=== PATIENT | male | born 1955 | race Caucasian/White ===

== ENCOUNTER 2024-10-22 18:59 | Emergency (ER) | payer BC, MEDICARE ==
[~2024-10-22] VITALS: Ht 188 cm; Wt 106.4 kg
[~2024-10-22 18:59] MED LIST: CYCL-1 PO
[2024-10-22 19:35] LABS: BASOPHILS % (AUTO) 0.4 % (0-1); EOSINOPHILS # (AUTO) 0.2 X10'3 (0-0.9); EOSINOPHILS % (AUTO) 2.2 % (0-6); HEMATOCRIT 39.8 % (42.0-52.0); HEMOGLOBIN 13.6 g/dl (14.0-17.9); LYMPHOCYTES % (AUTO) 22.7 % (21-51); MEAN CORPUSCULAR HEMOGLOBIN 28.5 PG (27.0-31.0); MEAN CORPUSCULAR HGB CONC 34.2 g/dL (33.0-36.5); MEAN CORPUSCULAR VOLUME 83.5 FL (78-98); MEAN PLATELET VOLUME 7.6 FL (7.4-10.4); MONOCYTES # (AUTO) 0.6 X10'3 (0-0.9); MONOCYTES % (AUTO) 6.3 % (2-12); NEUTROPHILS % (AUTO) 68.4 % (42-75); PLATELET COUNT 313 X10'3 (140-440); RED BLOOD COUNT 4.77 X10'6 (4.70-6.10); RED CELL DISTRIBUTION WIDTH 13.2 % (11.5-14.5); WHITE BLOOD COUNT 8.8 X10'3 (4.5-11.0)
--- NOTE | 2024-10-22 19:35 | RADIOLOGY REPORT ---
CHEST RADIOGRAPH Indication: CP Technique: Single frontal view of the chest was obtained COMPARISON: None FINDINGS: Lines and Tubes: None Lungs: Clear Pleura: No effusion. No pneumothorax. Cardiomediastinal contours: Unremarkable IMPRESSION: No acute disease.
[2024-10-22 19:49] LABS: ALANINE AMINOTRANSFERASE 25 U/L (12-78); ALBUMIN 3.8 G/DL (3.4-5.0); ALKALINE PHOSPHATASE 131 IU/L (46-116); ANION GAP 11 (8-16); ASPARTATE AMINO TRANSFERASE 10 U/L (10-37); BILIRUBIN,TOTAL 0.5 MG/DL (0.1-1.0); BLOOD UREA NITROGEN 12 MG/DL (7-18); BUN/CREATININE RATIO 8.8 (10.0-20.0); CALCIUM 8.4 MG/DL (8.5-10.1); CHLORIDE 106 MMOL/L (99-107); CREATININE 1.37 MG/DL (0.60-1.10); GLUCOSE 98 MG/DL (70-104); POTASSIUM 3.3 MMOL/L (3.5-5.1); SODIUM 142 MMOL/L (135-145); TOTAL CARBON DIOXIDE 24.6 MMOL/L (24-32); TOTAL PROTEIN 7.5 G/DL (6.4-8.2); eGFR 52 ML/MIN
[2024-10-22 19:56] LABS: PRO BRAIN NATRIURETIC PEPTIDE 209 PG/ML (0-125)
--- NOTE | 2024-10-22 20:27 | RADIOLOGY REPORT ---
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 This e xam was performed according to our departmental dose optimization program. Up-to-date CT equipment an d radiation dose reduction techniques are utilized as appropriate. CTDIVol: 0.14 + 60.96 mGy DLP: 1149.89 mGy-cm WID: COMPARISON: None FINDINGS: Moderate patchy low-attenuation in the cerebral white matter consistent with nonspecific white matter disease. The ventricles and subarachnoid spaces are normal in size and configuration. There is no midline william ft or mass effect. The heredia white matter interfaces are maintained. The basal cisterns are patent. Th ere is no evidence of acute intracranial hemorrhage or extra-axial fluid collection. The mastoid air cells are well aerated. There is a moderate fluid level in the left maxillary sinus. There is moderat e mucosal thickening of the right maxillary sinus. There is mild mucosal thickening of the left front al sinus and anterior left ethmoid air cells. IMPRESSION: 1. No acute intracranial abnormality. 2. Moderate chronic microvascular ischemic change. 3. Left ostiomeatal unit complex pattern sinusitis. 4. Additional moderate mucosal thickening of the right maxillary sinus, likely inflammatory.
[2024-10-22] MEDS: metoprolol succinate 25mg (24-HOUR) SR. Tablet PO ONE (22:23)
[2024-10-22 22:49] VITALS: TEMP 97.7
--- NOTE | 2024-10-22 23:23 | Physician Documentation ---
History of Present Illness ~ Chief Complaint: Syncope Stated Complaint: CP Time Seen by MD: 21:43 Primary Medical Doctor: NONE Mode of Arrival: POV HPI Patient presents to the emergency room after having lost consciousness that has home. Patient has a history of atrial fibrillation and is noncompliant with his medications regularly. He denies taking his medications today. He states he can feels when he is in atrial fibrillation. Apparently he was at work today and syncopized with head strike. He denies any chest pain. Medication Reconciliation Allergies: Coded Allergies: No Known Allergies (Unverified , 07/21/15) Scheduled PRN Cyclobenzaprine* (Cyclobenzaprine*), 1 TABLET PO QHS PRN for muscle spasms Past Medical History Past Medical History: No Pertinent History Past Surgical History: noncontributory Smoking Status: Never smoker Alcohol Use: None Lives In: Home Occupation: employed Review of Systems ROS All review of systems negative except as per HPI Physical Exam Vital Signs: Temperature: 97.7, Source: Oral, Heart Rate: 94, Respiratory Rate: 12, BP: 158/77, Pulse Oximetry: 98 Oxygen Flow Rate: 0 Physical Exam General: Patient is awake, alert, oriented x4 in no acute distress Head: Normocephalic and atraumatic. Eyes: Conjunctival normal. EOMI. PERRL. ENT: Mucous membranes moist. Neck: Supple, trachea is midline. Chest: Clear to auscultation bilaterally without rales, rhonchi, or wheezes. There is no accessory muscle use or retractions. Cardiac: Tachycardic irregular without murmurs, gallops, or rubs. Abd: Soft, nondistended, nontender, with normoactive bowel sounds. No guarding, rebound, or rigidity. Extremities: Normal strength. Normal range of motion. No deformities or edema. No calf tenderness to palpation Neuro: Cranial nerves II-XII grossly intact. No focal neuro deficits. Progress Results/Orders Results/Orders Orders - TRE TERRY MD Chest,Single View (10/22/24 19:00) Monitor (10/22/24 19:00) Saline Lock (10/22/24 19:00) Oxygen (10/22/24 19:00) Electrocardiogram (10/22/24 19:00) Ct Head (10/22/24 19:20) Completed Orders - TRE TERRY MD Chest,Single View (10/22/24 19:00) Cbc/Diff (10/22/24 19:00) PBNP (10/22/24 19:00) CMP (10/22/24 19:00) Hs Troponin I W Calculations (10/22/24 19:00) Hs Troponin I W Calculations (10/22/24 21:00) Hs Troponin I W Calculations (10/22/24 22:00) Ct Head (10/22/24 19:20) Metoprolol Succinate Er Tablet (Toprol X (10/22/24 21:45) Normal Saline 1000ml (Sodium Chloride 10 (10/22/24 23:25) Diltiazem Iv (Cardizem Iv 5mg/Ml Inj.) (10/22/24 23:25) Potassium Cl Sr Tablet (K-Dur Tablet) (10/22/24 23:30) Ondansetron Disint. Tablet (Zofran Odt T (10/22/24 23:30) Medications Received in ER Medications (Trade) Dose Ordered Sig/Shania Route PRN Reason Start Time Stop Time Status Last Admin Dose Admin (Toprol XL (24-hour) tablet) 25 mg ONCE ONCE PO 10/22/24 21:45 10/22/24 21:46 DC 10/22/24 22:23 25 MG Sodium Chloride 1,000 ml @ 1,000 mls/hr ONCE ONCE IV 10/22/24 23:25 10/23/24 00:24 DC 10/22/24 23:52 1,000 MLS/HR (Cardizem IV 5mg/ ml inj.) 5 mg ONCE ONCE IV 10/22/24 23:25 10/22/24 23:30 DC 10/22/24 23:54 5 MG (K-DUR tablet) 40 meq ONCE STAT PO 10/22/24 23:30 10/22/24 23:31 DC 10/22/24 23:52 40 MEQ (Zofran ODT tablet) 4 mg ONCE ONCE PO 10/22/24 23:30 10/22/24 23:31 DC 10/22/24 23:52 4 MG Vital Signs 10/22/24 10/22/24 10/22/24 10/22/24 19:06 21:11 21:32 22:47 Temp 98.5 97.7 Pulse 110 102 146 Resp 16 16 16 10 B/P (MAP) 143/84 105/68 (80) 135/77 (96) Pulse Ox 96 96 98 O2 Flow Rate 0 0 0 10/22/24 10/22/24 10/23/24 22:49 23:54 00:07 Temp 97.7 Pulse 94 106 100 Resp 12 16 B/P (MAP) 158/77 (104) 130/85 129/72 (91) Pulse Ox 98 97 O2 Flow Rate 0 0 Laboratory Tests Test 10/22/24 19:13 10/22/24 19:19 10/22/24 20:38 10/22/24 22:27 Glucometer 98 White Blood Count 8.8 Red Blood Count 4.77 Hemoglobin 13.6 L Hematocrit 39.8 L Mean Corpuscular Volume 83.5 Mean Corpuscular Hemoglobin 28.5 Mean Corpuscular Hemoglobin Concent 34.2 Red Cell Distribution Width 13.2 Platelet Count 313 Mean Platelet Volume 7.6 Neutrophils (%) (Auto) 68.4 Lymphocytes (%) (Auto) 22.7 Monocytes (%) (Auto) 6.3 Eosinophils (%) (Auto) 2.2 Basophils (%) (Auto) 0.4 Neutrophils # (Auto) 6.0 Lymphocytes # (Auto) 2.0 Monocytes # (Auto) 0.6 Eosinophils # (Auto) 0.2 Basophils # (Auto) 0.0 CBC Comment Sodium Level 142 Potassium Level 3.3 L Chloride Level 106 Carbon Dioxide Level 24.6 Anion Gap 11 Blood Urea Nitrogen 12 Creatinine 1.37 H Estimated GFR/1.73 m2 52 BUN/Creatinine Ratio 8.8 L Glucose Level 98 Calcium Level 8.4 L Total Bilirubin 0.5 Aspartate Amino Transf (AST/SGOT) 10 Alanine Aminotransferase (ALT/SGPT) 25 Alkaline Phosphatase 131 H Troponin I High Sensitivity 9 10 15 Pro-B-Type Natriuretic Peptide 209 H Total Protein 7.5 Albumin 3.8 Globulin 3.7 Albumin/Globulin Ratio 1.0 L Chemistry Comments Troponin I High Sens Percent Delta 11 50 Troponin I Hi Sens Absolute Change 1 5 EKG/XRAY/CT/US/VASC/MRI EKG : Additional Comment EKG interpreted by myself shows time of 1907, rate 109, sinus tachycardia, normal axis, no ST changes Chest X-Ray : Additional Comments Exam: CHEST,SINGLE VIEW CHEST RADIOGRAPH Indication: CP Technique: Single frontal view of the chest was obtained COMPARISON: None FINDINGS: Lines and Tubes: None Lungs: Clear Pleura: No effusion. No pneumothorax. Cardiomediastinal contours: Unremarkable IMPRESSION: No acute disease. Medical Decision Making Findings Patient presents to the emergency room with dizziness and loss of consciousness. Differentials include but are not limited to cardiac arrhythmia, dehydration, vasovagal, pulmonary embolism, ACS therefore emergent labs and imaging indicated. Chest x-ray is reassuring as are labs. Patient endorses noncompliance with his medication. Although we did not capture it on EKG patie nt was in AFib RVR with heart rate between 140 and 150. He went in and out of this a couple of times during his stay in the emergency room. Patient received IV fluids in his dose of metoprolol with improvement of symptoms. He has passed the road test. No calf tenderness to palpation and he had not feel he was suffering from pulmonary embolism. I believe the root of his symptoms was AFib RVR leading to decreased blood pressure in his symptoms. The absolute need to be compliant with his medication discussed. ER precautions discussed. 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 Your symptoms are likely being caused from your heart rate being too high from not taking your medications. Drink plenty of water. Not only are you at increased risk of passing out by not taking your medications but also increased risk of stroke. Follow up with your clay machine operator for any questions. Referrals: NO PRIMARY CARE PROVIDER (PCP) Signature Scribe Signature: No scribe Attestation: The note accurately reflects work and decisions made by me.Tre Terry MD 10/23/24 01:11 TRE TERRY MD October 22, 2024 23:23
[2024-10-22] MEDS: ondansetron 4mg rapidly disintigrating tab PO ONE (23:52)
[2024-10-22] MEDS: potassium Cl 20 mEq SR tablet PO STA (23:52)
[2024-10-22] MEDS: normal saline 1000ml 1,000 ML IV ONE (23:52)
[2024-10-22] MEDS: diltiazem 5mg/ml 5ml inj. IV ONE (23:54)
[2024-10-23 00:07] VITALS: BP 129/72; PULSE 100; RESP 16; O2SAT 97
--- NOTE | 2024-10-23 06:06 | ELECTROCARDIOGRAPH REPORT ---
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 Franky Lara Measurements Intervals [place] Rate: 101 P: 0 [place]: 0 QRS: 12 QRSD: 165 T: 19 QT: 383 QTc: 497 Interpretive Statements Atrial fibrillation Right bundle branch block Artifact in lead(s) I,II,aVR,aVL,aVF Electronically Signed On 10-26-2024 13:44:[address] Franky Lara Please click the below link to view image of tracing.
[2024-10-23] MEDS ORDERED: METO-395 PO (11:33)
[2024-10-23] MEDS ORDERED: ROSU20TA98 PO (11:33)
== END 2024-10-23 01:22 | disposition home or self-care (01) ==
LOC: ER 19:00
DX: I48.20 Chronic atrial fibrillation, unspecified (principal); Z91.148 Patient's other noncompliance with medication regimen for other reason
CPT/HCPCS: 36415; 70450; 71045; 80053; 82948; 83880; 84484; 85025; 93005; 96361; 96374; 99285; J3490; J7030

== ENCOUNTER 2024-10-23 10:45 | Inpatient (IN) | payer BC, MEDICARE ==
[~2024-10-23] VITALS: Ht 188 cm; Wt 107.0 kg
--- NOTE | 2024-10-23 10:49 | ELECTROCARDIOGRAPH REPORT ---
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 Franky Lara Measurements Intervals [place] Rate: 98 P: 91 [place]: 143 QRS: 114 QRSD: 102 T: 91 QT: 361 QTc: 461 Interpretive Statements Sinus rhythm Right atrial enlargement Consider right ventricular hypertrophy Probable anteroseptal infarct, old Electronically Signed On 10-26-2024 13:43:[address] Franky Lara Please click the below link to view image of tracing.
[2024-10-23] MEDS: metoprolol tartrate 1mg/ml inj IV ONE ×2 (11:13→11:20)
[2024-10-23] MEDS ORDERED: metoclopramide 5 mg/ml inj IV ONE (11:15)
--- NOTE | 2024-10-23 11:15 | Physician Documentation ---
History of Present Illness ~ Chief Complaint: Syncope Stated Complaint: CHEST PAIN Time Seen by MD: 11:00 Primary Medical Doctor: BLADE HPI 69-year-old male history of AFib presenting for syncopal episode Medication Reconciliation Allergies: Coded Allergies: No Known Allergies (Unverified , 07/21/15) Scheduled Metoprolol Succinate (Metoprolol Succinate), 1 TAB PO DAILY, (Reported) Rosuvastatin Calcium (Rosuvastatin Calcium), 1 TAB PO HS, (Reported) Discontinued Medications Cyclobenzaprine* (Cyclobenzaprine*), 1 TABLET PO QHS PRN for muscle spasms Discontinued Reason: patient no longer taking Past Medical History Past Medical History: No Pertinent History Past Surgical History: noncontributory Alcohol Use: None Lives In: Home Occupation: employed Review of Systems Constitutional: Denies: fever Respiratory: Denies: cough, orthopnea, shortness of breath Cardiovascular: Reports: diaphoresis, lightheadedness, syncope; Denies: chest pain Gastrointestinal: Denies: abdominal pain Neurological: Denies: headache Integumentary: Denies: rash Physical Exam Vital Signs: Temperature: 98.3, Source: Oral, Heart Rate: 82, Respiratory Rate: 16, BP: 144/67, Pulse Oximetry: 98 Oxygen Flow Rate: 0 Physical Exam Well-appearing no distress resting comfortably in bed No JVD Cardiopulmonary clear to auscultation bilaterally No wheezing rhonchi or rales No murmur Abdomen is soft nontender nondistended no palpable mass Lower extremity no edema Neuro awake alert oriented Skin warm well-perfused Progress Progress Note Time 11:10 a.m. patient had witnessed syncopal episode heart rate in the 200s, SVT unresponsive for approximately 30 seconds. Spontaneously cardioverted normal sinus rhythm 12:00 p.m. discussed case with on-call comic artist Dr. Kelly he recommends that we consult his primary comic artist Mina Jerez 1:00 p.m. real estate legal secretary has been unable to reach Dr. Jerez. He is in the office today and message left with his nurse who advises she will pass him the message Results/Orders Reviewed/noted all lab results: Yes Results/Orders Orders - LORI CARMONA MD Chest,Single View (10/23/24 10:47) Monitor (10/23/24 10:47) Saline Lock (10/23/24 10:47) Oxygen (10/23/24 10:47) Ct Chest (10/23/24 12:03) Ct T&L Spine (10/23/24 12:03) Page Hospitalist (10/23/24 13:04) Fill Out Med Reconciliation (10/23/24 13:04) Completed Orders - LORI CARMONA MD Chest,Single View (10/23/24 10:47) Cbc/Diff (10/23/24 10:47) PBNP (10/23/24 10:47) Electrocardiogram (10/23/24 10:47) CMP (10/23/24 10:47) Hs Troponin I W Calculations (10/23/24 10:47) Hs Troponin I W Calculations (10/23/24 12:47) Hs Troponin I W Calculations (10/23/24 13:47) Metoprolol Tartrate Inj (Lopressor Iv) (10/23/24 11:09) Metoprolol Tartrate Tablet (Lopressor Ta (10/23/24 11:10) Morphine 4mg/Ml Inj. (Morphine Inj.) (10/23/24 11:20) Metoprolol Tartrate Inj (Lopressor Iv) (10/23/24 11:20) Ringers Solution, Lacted (Lactated Ringe (10/23/24 11:20) MG (10/23/24 10:57) Morphine 4mg/Ml Inj. (Morphine Inj.) (10/23/24 12:05) Ct Chest (10/23/24 12:03) Ua With Microscopic (10/23/24 12:13) Electrocardiogram (10/23/24 10:57) Ct T&L Spine (10/23/24 12:03) Electrocardiogram (10/23/24 11:09) Vital Signs 10/23/24 10/23/24 10/23/24 10/23/24 10:49 11:13 11:24 11:27 Temp 98.3 Pulse 78 82 77 Resp 16 15 B/P (MAP) 151/67 Pulse Ox 98 O2 Flow Rate 0 10/23/24 10/23/24 11:28 13:22 Temp 98.1 Pulse 79 70 Resp 12 18 B/P (MAP) 112/73 (86) 131/ Pulse Ox 97 93 O2 Flow Rate 2.0 Laboratory Tests Test 10/23/24 10:57 10/23/24 12:13 10/23/24 13:12 White Blood Count 10.6 Red Blood Count 4.83 Hemoglobin 13.9 L Hematocrit 40.7 L Mean Corpuscular Volume 84.2 Mean Corpuscular Hemoglobin 28.7 Mean Corpuscular Hemoglobin Concent 34.1 Red Cell Distribution Width 13.6 Platelet Count 365 Mean Platelet Volume 7.7 Neutrophils (%) (Auto) 72.4 Lymphocytes (%) (Auto) 18.9 L Monocytes (%) (Auto) 6.9 Eosinophils (%) (Auto) 1.5 Basophils (%) (Auto) 0.3 Neutrophils # (Auto) 7.7 Lymphocytes # (Auto) 2.0 Monocytes # (Auto) 0.7 Eosinophils # (Auto) 0.2 Basophils # (Auto) 0.0 CBC Comment Sodium Level 143 Potassium Level 4.3 Chloride Level 109 H Carbon Dioxide Level 23.5 L Anion Gap 11 Blood Urea Nitrogen 11 Creatinine 1.35 H Estimated GFR/1.73 m2 53 BUN/Creatinine Ratio 8.1 L Glucose Level 114 H Calcium Level 8.3 L Magnesium Level 2.0 Total Bilirubin 0.5 Aspartate Amino Transf (AST/SGOT) 13 Alanine Aminotransferase (ALT/SGPT) 27 Alkaline Phosphatase 123 H Troponin I High Sensitivity 7 11 Troponin I High Sens Percent Delta 53 57 Troponin I Hi Sens Absolute Change -8 4 Pro-B-Type Natriuretic Peptide 770 H Total Protein 7.2 Albumin 3.6 Globulin 3.6 Albumin/Globulin Ratio 1.0 L Chemistry Comments Urine Specimen Description Cln catch midstream Urine Color Yellow Urine Clarity Clear Urine pH 6.5 Urine Specific Walker 1.010 Urine Protein Trace Urine Glucose (UA) Negative Urine Ketones Negative Urine Occult Blood Negative Urine Nitrite Negative Urine Bilirubin Negative Urine Urobilinogen 0.2 Urine Leukocyte Esterase Negative Urine RBC 0-2 Urine WBC 0-4 Urine Squamous Epithelial Cells Few Urine Bacteria None seen Urine Mucus None seen Volume Urine Centrifuged 10 ml Urine Comment Urine Opiates Screen Positive Urine Methadone Screen Negative Urine Fentanyl Screen Negative Urine Barbiturates Screen Negative Urine Phencyclidine Screen Negative Urine Amphetamines Screen Negative Urine Benzodiazepines Screen Negative Urine Cocaine Screen Negative Urine Cannabinoids Screen Negative Drug Screen Comment EKG/XRAY/CT/US/VASC/MRI EKG : Additional Comment I independently interpreted EKG time 10:57 a.m. indication syncope SVT rate to 10 normal axis normal intervals no ST-elevation Medical Decision Making Additional Information Ventricular fibrillation, SVT, AFib Departure Disposition: ADMITTED INPATIENT Admitted to Inpatient Unit: to hospitalist Impression: Primary Impression: SVT (supraventricular tachycardia) Additional Impression: Syncope Qualified Codes: R55 - Syncope and collapse Additional Impression Text Patient presented with multiple episodes of syncope 1 witnessed by myself during which he was in a narrow complex tachycardia. Attempted reaching his comic artist with no success. He was admitted to the hospitalist service for further management of his syncope Referrals: NO PRIMARY CARE PROVIDER (PCP) Critical Care Note Total Time (mins): 30 Critical Care Note The very real possibility of a deterioration of this patient's condition required the highest level of my preparedness for sudden, emergent intervention. I provided critical care services, which included medication orders, frequent reevaluations of the patient's condition and response to treatment, ordering and reviewing test results, and discussing the case with various consultants. Excludes time spent performing separately billable procedures. The critical care time associated with the care of the patient was 30 minutes in the management of SVT requiring immediate intervention Signature Scribe Signature: niyah Attestation: LORI Haines MD October 23, 2024 11:15
[2024-10-23 11:16] LABS: BASOPHILS % (AUTO) 0.3 % (0-1); EOSINOPHILS # (AUTO) 0.2 X10'3 (0-0.9); EOSINOPHILS % (AUTO) 1.5 % (0-6); HEMATOCRIT 40.7 % (42.0-52.0); HEMOGLOBIN 13.9 g/dl (14.0-17.9); LYMPHOCYTES % (AUTO) 18.9 % (21-51); MEAN CORPUSCULAR HEMOGLOBIN 28.7 PG (27.0-31.0); MEAN CORPUSCULAR HGB CONC 34.1 g/dL (33.0-36.5); MEAN CORPUSCULAR VOLUME 84.2 FL (78-98); MEAN PLATELET VOLUME 7.7 FL (7.4-10.4); MONOCYTES # (AUTO) 0.7 X10'3 (0-0.9); MONOCYTES % (AUTO) 6.9 % (2-12); NEUTROPHILS # (AUTO) 7.7 X10'3 (1.8-7.7); NEUTROPHILS % (AUTO) 72.4 % (42-75); PLATELET COUNT 365 X10'3 (140-440); RED BLOOD COUNT 4.83 X10'6 (4.70-6.10); RED CELL DISTRIBUTION WIDTH 13.6 % (11.5-14.5); WHITE BLOOD COUNT 10.6 X10'3 (4.5-11.0)
[2024-10-23] MEDS: metoprolol tartrate 50mg tablet PO ONE (11:24)
[2024-10-23] MEDS: ringers solution, lacted 1,000 ML IV ONE (11:26)
[2024-10-23] MEDS: morphine 4 MG/ML inj SYRINge IV ONE ×2 (11:27→13:59)
[2024-10-23] MEDS ORDERED: METO-395 PO (11:33)
[2024-10-23] MEDS ORDERED: ROSU20TA98 PO (11:33)
[2024-10-23 11:36] LABS: ALANINE AMINOTRANSFERASE 27 U/L (12-78); ALBUMIN 3.6 G/DL (3.4-5.0); ALKALINE PHOSPHATASE 123 IU/L (46-116); ANION GAP 11 (8-16); ASPARTATE AMINO TRANSFERASE 13 U/L (10-37); BILIRUBIN,TOTAL 0.5 MG/DL (0.1-1.0); BLOOD UREA NITROGEN 11 MG/DL (7-18); BUN/CREATININE RATIO 8.1 (10.0-20.0); CALCIUM 8.3 MG/DL (8.5-10.1); CHLORIDE 109 MMOL/L (99-107); CREATININE 1.35 MG/DL (0.60-1.10); GLUCOSE 114 MG/DL (70-104); POTASSIUM 4.3 MMOL/L (3.5-5.1); PRO BRAIN NATRIURETIC PEPTIDE 770 PG/ML (0-125); SODIUM 143 MMOL/L (135-145); TOTAL CARBON DIOXIDE 23.5 MMOL/L (24-32); TOTAL PROTEIN 7.2 G/DL (6.4-8.2); eCRCL 62 ML/MIN; eGFR 53 ML/MIN
--- NOTE | 2024-10-23 11:41 | RADIOLOGY REPORT ---
CHEST RADIOGRAPH Indication: CP Technique: Single frontal view of the chest was obtained COMPARISON: DI CHEST,SINGLE VIEW on DOS: 10/22/24 FINDINGS: Lines and Tubes: None Lungs: Clear Pleura: No effusion. No pneumothorax. Cardiomediastinal contours: Cardiomegaly Bones: Unremarkable IMPRESSION: No acute disease.
[2024-10-23 12:44] LABS: BILIRUBIN,URINE NEGATIVE (Neg); CLARITY,URINE CLEAR (Clear); COLOR,URINE YELLOW (Yellow); GLUCOSE, URINE NEGATIVE (Neg); KETONES,URINE NEGATIVE (Neg); LEUKOCYTE ESTERASE ,URINE NEGATIVE (Neg); OCCULT BLOOD,URINE NEGATIVE (Neg); PH,URINE 6.5 (4.8-8.0); PROTEIN,URINE TRACE mg/dl (Neg); UROBILINOGEN,URINE 0.2 E.U/dL (0.2-1.0)
[2024-10-23 12:50] LABS: NITRITES, URINE NEGATIVE (Neg)
[2024-10-23 12:51] LABS: UA COLLECTION TYPE CLN CATCH MIDSTREAM
[2024-10-23 12:59] LABS: BACTERIA,URINE NONE SEEN /HPF (Neg); RBC,URINE 0-2 /HPF (0-2); SQUAMOUS EPITHELIAL CELL,UR FEW /LPF (FEW); WBC,URINE 0-4 /HPF (0-4)
[2024-10-23 13:00] LABS: MUCUS STRANDS NONE SEEN /LPF (Neg)
--- NOTE | 2024-10-23 13:00 | ELECTROCARDIOGRAPH REPORT ---
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 Franky Lara Measurements Intervals [place] Rate: 208 P: 51 OR: 110 QRS: 50 QRSD: 93 T: 71 QT: 266 QTc: 496 Interpretive Statements Supraventricular tachycardia RSR' in V1 or V2, right VCD or RVH Electronically Signed On 10-26-2024 13:43:[address] Franky Lara Please click the below link to view image of tracing.
--- NOTE | 2024-10-23 13:00 | ELECTROCARDIOGRAPH REPORT ---
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 Franky Lara Measurements Intervals [place] Rate: 95 P: 63 [place]: 149 QRS: 32 QRSD: 100 T: 34 QT: 379 QTc: 477 Interpretive Statements Sinus rhythm RSR' in V1 or V2, right VCD or RVH Borderline prolonged QT interval Electronically Signed On 10-26-2024 13:43:[address] Franky Lara Please click the below link to view image of tracing.
[2024-10-23] MEDS ORDERED: ondansetron/PF 4mg/2ml inj IV PRN (13:30)
[2024-10-23] MEDS ORDERED: potassium Cl 40MEQ/1/2NS 520ml 520 ML IV PRN (13:30)
[2024-10-23] MEDS ORDERED: magnesium sulf-water 2g/50mL 50 ML IV PRN (13:30)
[2024-10-23] MEDS ORDERED: magnesium sulf-water 4G/100mL 100 ML IV PRN (13:30)
[2024-10-23] MEDS ORDERED: magnesium Cl slow-release 64mg tablet PO PRN (13:30)
[2024-10-23] MEDS ORDERED: potassium Cl 20 mEq SR tablet PO PRN ×2 (13:30)
--- NOTE | 2024-10-23 13:39 | RADIOLOGY REPORT ---
CT CT T L SPINE Indication: back trauma EXAM DATE: 10/23/2024 12:58 PM COMPARISON: None TECHNIQUE: CT of the thoracic /lumbar spine and chest without intravenous contrast. RADIATION DOSE: CTDIvol: 34.4 mGy, DLP: 2184 mGy*cm FINDINGS: Trachea patent. No pneumothorax. Bilateral atelectasis. No pulmonary airspace consolidation. Heart size is at the upper limits of normal. Coronary artery calcification disease. No supraclavicular, axillary lymphadenopathy. There is an indeterminate left adrenal nodule measuring 3.8 cm. Thoracic/lumbar spine: The thoracic and lumbar vertebral body heights are maintained. There is mild-t o-moderate multilevel disc space narrowing with endplate sclerosis, anterior and posterior osteophyto sis. Moderate facet hypertrophic changes. There are acute fractures of the left L1, L2, L3, L4 transv erse processes. Aortic atherosclerotic disease. IMPRESSION: 1. Acute fractures of the left L1, L2, L3, L4 transverse processes. 2. [id number] thoracolumbar degenerative disc disease. 3. No pulmonary airspace consolidation. 4. No pulmonary airspace consolidation. 5. Atherosclerotic / coronary artery calcification disease. 6. Pulmonary emphysematous changes. 7. Indeterminate left adrenal nodule measuring 3.8 cm. This can be further characterized on an MRI o f the abdomen, adrenal mass protocol. 8. Other findings as described.
[2024-10-23] MEDS: normal saline 1000ml 1,000 ML IV SCH (13:59)
[2024-10-23 15:15] LABS: URINE AMPHETAMINE SCREEN NEGATIVE (Neg); URINE BARBITUATE SCREEN NEGATIVE (Neg); URINE BENZODIAZEPINES SCREEN NEGATIVE (Neg); URINE CANNABINOID SCREEN NEGATIVE (Neg); URINE COCAINE SCREEN NEGATIVE (Neg); URINE METHADONE SCREEN NEGATIVE (Neg); URINE OPIATE SCREEN POSITIVE (Neg); URINE PHENCYCLIDINE SCREEN NEGATIVE (Neg)
[2024-10-23 15:32] VITALS: BP 129/67; PULSE 86; RESP 15; TEMP 96.7; O2SAT 97
--- NOTE | 2024-10-23 15:56 | HISTORY AND PHYSICAL-Residence ---
History & Physical Providers to CC Resident Creating Document: BERTO PERSON RES ~ History of Present Illness Primary Medical Doctor: NONE Reason for Admit\Complaint: Syncope and Acute lumbar Fractures from GLF History of Present Illness A 69 years old male with a past medical history of AFib with CVR not on any anticoagulation and hx of previous syncopes presented with the frequent syncope attacks resulted into Acute lumbar fractures L1-4 from GLF. He stated that he has passed out total three times in ER this time with some prodromal symptoms of hot flashes, preformed idea of being about to pass out, light headness, and dizziness without having any chest pain pressure or discomfort when he stood up from sitting to standing in ER. He denies palpitations, FNDs, loss of bowel and bladder dysfunction, visual changes, and seizure like activity. He endorsed that he has a confusion, disorientation when he woke up from the syncope. 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 He was found by his Girlfriend at home on the floor with some bruises at the ear nose and nasal bridges. He was released from ER yesterday and got another syncope with prodromal neuro symptoms at his work bathroom after he had urinated and passed out on his back. He has previous syncopes for another total 3 times with no prodromal symptoms for which he visited Dr Jerez office last 5 months ago, where he did not find a specific reason of syncope including bilateral carotid stenosis etc except for the Afib for which he had an electro cardioversion. He denies travel history, sick contact, hx of seizures, and other illicit usage of drugs. Allergies: Coded Allergies: No Known Allergies (Unverified , 07/21/15) Home Medications Home Medications Active Reported Rosuvastatin Calcium 20 Mg Tablet 1 Tab PO HS Metoprolol Succinate 25 Mg Tab.sr.24h 1 Tab PO DAILY Past Medical History Past Medical History AFib with CVR, no anticoagulation Previous history of similar syncope attacks with or without prodromal neurological symptoms. Past Surgical History Surgical History Comment No significant Past Social History Social History Comment He lives alone but his girlfriend is helping and out He quit smoking cigarettes 10 years ago, used to smoke a pack and a half daily for 35 years He quit drinking alcohol 6 years ago and was not a heavy drinker Alcohol Use: None Lives In: Home Occupation: employed ROS ROS ROS were reviewed, WNL except for the above-mentioned in HPI Exam Vitals: Vital Signs Date Time Temp Pulse Resp B/P (MAP) Pulse Ox O2 Delivery O2 Flow Rate FiO2 10/23/24 14:45 67 18 125/71 (89) 93 10/23/24 11:28 98.1 2.0 General: General: In acute pain from the back, Well alert, well oriented, not confused, not agitated, not in acute distress, well cooperated during the physical. HEENT: HEENT: Conjunctive are pink, sclerae clear, no icterus, pupil is equal in both sides, reactive to light, no ear discharge, no pharyngeal erythema or an edema, mouth and lips are slightly dry. Neck: Neck: Supple, no JVD, no lymphadenopathy and thyromegaly. Chest: Lungs: Equal air entry on both lungs, no additional sounds Cardiovascular: Heart: S1-S2 irregularly irregular rhythm and, regular rate, no gallops, no rubs, no murmurs Abdomen: Abdomen: No visible peristalsis, Bowel sounds present on auscultation, soft, nontender, no guarding, no rigidity, no SPA fullness Extremities: Extremities: No obvious deformities, no pitting edema bilaterally, capillary refill intact, able to wiggle toes both sides, peripheral pulsations are intact on both sides Central Nervous System: GRADUATE NURSE: No focal neurological deficits, no motor and sensory weakness in all 4 extremities, could move all 4 extremities Musculoskeletal: Musculoskeletal: No joint swelling, deformities, inflammations, and no scoliosis and back tenderness Skin: Skin: No active skin lesions and rashes Diagnostic Data Last Recorded Lab Results: 10/23/24 1057 10/23/24 1057 Advance Care Planning Advanced Care plannin - 30 Minutes Additional Plan A 69 years old male with a past medical history of AFib with CVR not on any anticoagulation and hx of previous syncopes presented with the frequent syncope attacks resulted into Acute lumbar fractures L1-4 from GLF. # Syncope # GLF complicated w/ acute Lumbar fracture L1-4 w/o FNDs -electrolytes are within normal limits -RBS 114 -Tox urine show negative except for the opiate which could be from the previous ER visit prescription -Trop showed 7-11-9 -thoracic/lumbar spine CT scan showed IMPRESSION: 1. Acute fractures of the left L1, L2, L3, L4 transverse processes. 2. [id number] thoracolumbar degenerative disc disease. 3. No pulmonary airspace consolidation. 4. No pulmonary airspace consolidation. 5. Atherosclerotic / coronary artery calcification disease. 6. Pulmonary emphysematous changes. 7. Indeterminate left adrenal nodule measuring 3.8 cm. This can be further characterized on an MRI of the abdomen, adrenal mass protocol. 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 -heart healthy diet # ELevated Creatinine -no baseline to compare for cr and eGFR, current eGFR is 53 -will monitor daily including rate of eGFR declining with age -optimal hydration # Normochromic Normocytic anemia -hemoglobin 13.9, normal MCV and MCH -most probably from the hemodilution versus early part of CORY -daily CBC monitoring # Hx of substance use (EtoH, Tobacco) -monitoring any withdrawal symptoms, we will initiate protocols if it is necessary CODE STATUS: Full code DVT prophylaxis: Sc heparin 5000 units b.i.d. Analgesia/sedation: Dilaudid Lines/tubes: Peripheral IV GI prophylaxis: None Nutrition: Heart healthy Prognosis: Guarded Disposition: Continue medical management, telemetry, heart rate monitoring, follow up with the pending syncope workups, PT eval and DC plan. Resident MD attestation: Patient was seen, examined and discussed with attending MD, Dr. Rob PERSON MD Internal Medicine Resident, PGY2 [facility] Date of Service: October 23, 2024 Billing Provider: MASOUD WOODY MD Common Visit Codes: 89939-[id number] INP/OBS CARE (HIGH) Secondary Visit Codes: [id number] CARE PLAN 30 MINUTES BERTO PERSON RES October 23, 2024 15:56 MASOUD WOODY MD October 23, 2024 18:58
--- NOTE | 2024-10-23 16:38 | VASCULAR REPORT ---
Carotid Duplex Date: 10/23/2024 02:21 PM Clinical History: Evaluate for Stenosis Comparison: None Technique: Duplex Doppler evaluation of the extracranial carotid and vertebral arteries including col or Doppler and spectral/pulsed waveform analysis was performed. Findings: RIGHT SIDE: The peak systolic velocities are 84.1 cm/s in the distal CCA and 100.2 cm/s in the mid ICA.The ICA/CC A ratio is less than 2. The external carotid artery is patent with peak systolic velocity of 198.1 cm/s proximally. There is appropriate antegrade flow in the right vertebral artery. LEFT SIDE: The peak systolic velocities are 127.6 cm/s in the proximal CCA and 84.4 cm/s in the proximal ICA.. T he ICA/CCA ratio is less than 1. The external carotid artery is patent with peak systolic velocity of 113 cm/s proximally. There is appropriate antegrade flow in the left vertebral artery. IMPRESSION: No hemodynamically significant stenosis noted in the right carotid system. No hemodynamically significant stenosis noted in the left carotid system. Elevated velocity within the right proximal ICA up to 198.1 cm/sec. Reference: Radiology 2003; 229:[id number]
[2024-10-23] MEDS ORDERED: HYDROmorphone 2mg tablet PO PRN (16:50)
[2024-10-23] MEDS: HYDROmorphone 1 mg/ml syringe IV PRN (16:57)
[2024-10-23] MEDS: acetaminophen 325mg tablet PO SCH (16:57)
[2024-10-23 18:00] VITALS: BP 106/60; PULSE 72; RESP 18; TEMP 97.3; O2SAT 91
--- NOTE | 2024-10-23 18:33 | CARDIOLOGY REPORT ---
APPROVED REPORT EXAM: Comprehensive 2D, Doppler, and color-flow Echocardiogram. Patient Location: 302 Blood Pressure: 125/71 mmHg Heart Rate: 74 bpm Rhythm: NSR Indications Chest Pain Pro BNP [address] [employer] Machine Operator is Gabriel Jerez MD Previous echo 03/28/24 CVC 40-45% EF 2D Dimensions LA Diam4.1 cm IVSd 1.1 (0.7-1.1cm) LVDd 5.1 cm PWd 1.1 (0.7-1.1cm) IVSs 1.4 (0.8-1.2cm) LVDs 3.6 (2.5-4.0cm) Aortic Root(2D) 3.5 cm PWs 1.6 (0.8-1.2cm) LVOT Diameter 2.36 (1.8-2.4cm) LVEF(%) 56.0 (>50%) Ao Asc Diam.3.31 cmIVC 22.24 mm FS (%) 29.0 % SV 69.0 ml CO 4.9 L/min M-Mode Dimensions MV EPSS 0.9 (<0.5cm) Aortic Valve AoV Peak Toby. 144.7 cm/s AoV VTI 32.1 cm AO Peak GR. 8.4 mmHg AO Mean GR. 5 mmHg LVOT VTI 22.45 cm LVOT Peak Toby. 109.3 cm/s DMITRY(VTI)/BSA 3.07 cm2/m2 DMITRY (VTI) 3.07 cm2 Mitral Valve MV E Velocity 82.0 cm/s MV Peak Gr. 4 mmHg MV DECEL TIME 188 ms MV A Velocity 78.2 cm/s MV PHT 72 ms E/A Ratio 1.0 MVA (PHT) 3.06 cm2 MV VMax98.2 cm/s TDI Medial E' P. V 12.65 cm/s E/Medial E' 6.5 Tricuspid Valve RAP ESTIMATE 10 mmHg Pulmonary Vein S1 Velocity 52.9 cm/s D2 Velocity 35.5 cm/s PVa Zxkrdmjn45.5 cm/s PVa [id number] msec LEFT VENTRICLE Normal LV size and wall thickness. Overall systolic function is low normal. LVEF is 50-55%. RIGHT VENTRICLE RV appears mildly dilated with normal contractility. ATRIA Left atrium is mildly dilated. AORTIC VALVE Trileaflet AV appears sclerotic without stenosis. No insufficiency. MITRAL VALVE MV is thickened with mild annular calcification and no stenosis. Trace mitral regurgitation. TRICUSPID VALVE The tricuspid valve is normal in structure. Trace tricuspid regurgitation. PULMONIC VALVE The pulmonary valve is normal in structure. Trace pulmonic regurgitation. GREAT VESSELS The aortic root is normal in size. The ascending aorta is normal in size. IVC is dilated and collapse s greater than 50% with inspiration. PERICARDIUM There is no pericardial effusion epicardial pad present. Other Information Study Quality: Adequate Conclusion Normal LV size and wall thickness. Overall systolic function is low normal. LVEF is 50-55%. RV appears mildly dilated with normal contractility. Left atrium is mildly dilated. Trileaflet AV appears sclerotic without stenosis. No insufficiency. MV is thickened with mild annular calcification and no stenosis. Trace mitral regurgitation. The tricuspid valve is normal in structure. Trace tricuspid regurgitation. The pulmonary valve is normal in structure. Trace pulmonic regurgitation. There is no pericardial effusion epicardial pad present.
[2024-10-23 20:00] VITALS: RESP 12; O2SAT 95
[2024-10-23] MEDS ORDERED: morphine 2 MG/ML inj. syringe IV PRN (20:20)
[2024-10-23] MEDS: morphine 4 MG/ML inj SYRINge IV PRN (20:34)
[2024-10-23] MEDS: atorvastatin 20mg tablet PO SCH (20:38)
[2024-10-23] MEDS: Melatonin 3mg tablet PO SCH (20:39)
[2024-10-23] MEDS: heparin, porcine 5000 units/ml vial SQ SCH (20:41)
[2024-10-23 22:00] VITALS: BP 104/54; PULSE 65; RESP 12; TEMP 97.1; O2SAT 95
[2024-10-24] VITALS (8 sets, daily range): BP systolic 104–150; BP diastolic 56–92; PULSE 68–84; RESP 12–21; TEMP 96.6–98.7; O2SAT 91–98
[2024-10-24] MEDS: metoprolol succinate 25mg (24-HOUR) SR. Tablet PO SCH (07:48)
[2024-10-24 08:49] LABS: BASOPHILS % (AUTO) 0.4 % (0-1); EOSINOPHILS # (AUTO) 0.2 X10'3 (0-0.9); EOSINOPHILS % (AUTO) 2.6 % (0-6); HEMATOCRIT 31.7 % (42.0-52.0); HEMOGLOBIN 10.8 g/dl (14.0-17.9); LYMPHOCYTES # (AUTO) 1.3 X10'3 (1.1-4.8); LYMPHOCYTES % (AUTO) 21.8 % (21-51); MEAN CORPUSCULAR HEMOGLOBIN 28.8 PG (27.0-31.0); MEAN CORPUSCULAR VOLUME 84.8 FL (78-98); MEAN PLATELET VOLUME 7.6 FL (7.4-10.4); MONOCYTES # (AUTO) 0.5 X10'3 (0-0.9); MONOCYTES % (AUTO) 8.6 % (2-12); NEUTROPHILS # (AUTO) 3.9 X10'3 (1.8-7.7); NEUTROPHILS % (AUTO) 66.6 % (42-75); PLATELET COUNT 198 X10'3 (140-440); RED BLOOD COUNT 3.73 X10'6 (4.70-6.10); RED CELL DISTRIBUTION WIDTH 12.9 % (11.5-14.5); WHITE BLOOD COUNT 5.9 X10'3 (4.5-11.0)
[2024-10-24 09:03] LABS: ALANINE AMINOTRANSFERASE 22 U/L (12-78); ALBUMIN 2.7 G/DL (3.4-5.0); ALBUMIN/GLOBULIN RATIO 0.9 (1.1-1.5); ALKALINE PHOSPHATASE 94 IU/L (46-116); ANION GAP 5 (8-16); ASPARTATE AMINO TRANSFERASE 9 U/L (10-37); BILIRUBIN,TOTAL 0.5 MG/DL (0.1-1.0); BLOOD UREA NITROGEN 9 MG/DL (7-18); BUN/CREATININE RATIO 8.3 (10.0-20.0); CALCIUM 7.7 MG/DL (8.5-10.1); CHLORIDE 111 MMOL/L (99-107); CREATININE 1.09 MG/DL (0.60-1.10); GLUCOSE 97 MG/DL (70-104); SODIUM 143 MMOL/L (135-145); TOTAL CARBON DIOXIDE 27.2 MMOL/L (24-32); TOTAL PROTEIN 5.6 G/DL (6.4-8.2); eCRCL 76 ML/MIN; eGFR 67 ML/MIN
--- NOTE | 2024-10-24 12:46 | RADIOLOGY REPORT ---
CLINICAL INFORMATION: Acute lumbar transverse process fractures. No neurologic deficits. TECHNIQUE: Multisequence multiplanar MRI images of the lumbar spine were obtained without contrast. COMPARISON: CT dated 10/23/2024. INTERPRETATION: Straightening of the normal cervical lordosis. Minimal retrolisthesis of L5 on S1. Vertebral body heights are maintained. The left L1 through L4 transverse process fractures are sissy r demonstrated recent CT exam, although partially visualized on the coronal images from this exam wit h adjacent Prominent soft tissue edema. No other acute fractures are visualized on this exam. 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 Visualized spinal cord and cauda eq uina are within normal limits. The conus medullaris is appropriate in signal at the L1 level. L1-L2: Disc desiccation. No significant spinal canal or neural foraminal stenosis. L2-L3: Disc desiccation. There is a mild degree of spinal canal stenosis due to congenital spinal ca nal narrowing and epidural lipomatosis. No significant neural foraminal stenosis. L3-L4: Disc desiccation with mild disc bulge mildly indenting the ventral aspect of the thecal sac. There is mild spinal canal stenosis due to the disc bulge and epidural lipomatosis. Mild partial effa cement of the lateral recesses. Facet hypertrophy and slight encroachment of the neural foramina by t he disc bulge contributes to mild bilateral neural foraminal stenoses. L4-L5: Disc desiccation with diffuse disc bulge mildly indenting the ventral aspect of the thecal sa c. Mild spinal canal stenosis due to the disc bulge and epidural lipomatosis. There is partial efface ment of the lateral recesses bilaterally. Facet hypertrophy and encroachment of the neural foramina b y the disc bulge contributes to moderate bilateral neural foraminal stenoses. L5-S1: Disc desiccation with mild disc bulge mildly flattening the ventral aspect of the thecal sac. No significant spinal canal stenosis. Facet hypertrophy and encroachment of the neural foramina by t he disc bulge contributes to [id number] bilateral neural foraminal stenoses. IMPRESSION: 1. Acute, nondisplaced fractures of the left L1 through L4 transverse processes are better demonstrat ed on recent CT exam, partially visualized on the coronal STIR sequence on this exam with adjacent so ft tissue edema. 2. Degenerative disc disease and facet disease in the lumbar spine with associated spinal canal, suba rticular, and neural foraminal stenoses as detailed above. 3. Epidural lipomatosis contributes to the spinal canal stenoses. 4. Additional findings as detailed above.
--- NOTE | 2024-10-24 16:57 | PROGRESS NOTE- Residence ---
Progress Note - Resident Providers to CC Resident Creating Document: BERTO PERSON RES ~ Antibiotic Timeout Antibiotic Ordered?: No Subjective Patient will be having MRI scan today, patient did not report any focal neurological deficits and sensory motor weakness over the lower limbs, did not have any loss of bowel and bladder control function. Objective Vital Signs Date Time Temp Pulse Resp B/P (MAP) Pulse Ox O2 Delivery O2 Flow Rate FiO2 10/24/24 16:42 18 10/24/24 11:00 98.2 80 121/59 (79) 97 Room Air 10/23/24 11:28 2.0 Result Diagram: 10/24/24 0821 10/24/24 0821 Vitals were stable at the moment . On exam, General: In acute pain from the back, Well alert, well oriented, not confused, not agitated, not in acute distress, well cooperated during the physical. HEENT: Conjunctive are pink, sclerae clear, no icterus, pupil is equal in both sides, reactive to light, no ear discharge, no pharyngeal erythema or an edema, mouth and lips are slightly dry. Neck: Supple, no JVD, no lymphadenopathy and thyromegaly. Lungs: Equal air entry on both lungs, no additional sounds Heart: S1-S2 irregularly irregular rhythm and, regular rate, no gallops, no rubs, no murmurs Abdomen: No visible peristalsis, Bowel sounds present on auscultation, soft, nontender, no guarding, no rigidity, no SPA fullness Extremities: No obvious deformities, no pitting edema bilaterally, capillary refill intact, able to wiggle toes both sides, peripheral pulsations are intact on both sides ENCODING CLERK: No focal neurological deficits, no motor and sensory weakness in all 4 extremities, could move all 4 extremities Musculoskeletal: No joint swelling, deformities, inflammations, and no scoliosis and back tenderness Skin: No active skin lesions and rashes Assessment Assessment A 69 years old male with a past medical history of AFib with CVR not on any anticoagulation and hx of previous syncopes presented with the frequent syncope attacks resulted into Acute lumbar fractures L1-4 from GLF. Plan Plan # Syncope # GLF complicated w/ acute Lumbar fracture L1-4 w/o FNDs 10/24/2024: He had MRI lumbar spine scan IMPRESSION: 1. Acute, nondisplaced fractures of the left L1 through L4 transverse processes are better demonstrated on recent CT exam, partially visualized on the coronal STIR sequence on this exam with adjacent soft tissue edema. 2. Degenerative disc disease and facet disease in the lumbar spine with associated spinal canal, subarticular, and neural foraminal stenoses as detailed above. 3. Epidural lipomatosis contributes to the spinal canal stenoses. -continue pain medication, would encourage to movement and avoid bed-bound as much as possible once the pain is controlled, PT eval -Pending Orthostatic hypotension test 10/23/2024: -electrolytes are within normal limits -RBS 114 -Tox urine show negative except for the opiate which could be from the previous ER visit prescription -Trop showed -thoracic/lumbar spine CT scan showed IMPRESSION: 1. Acute fractures of the left L1, L2, L3, L4 transverse processes. 2. Bpao-[id number]-jwuebvml thoracolumbar degenerative disc disease. 3. No pulmonary airspace consolidation. 4. No pulmonary airspace consolidation. 5. Atherosclerotic / coronary artery calcification disease. 6. Pulmonary emphysematous changes. 7. Indeterminate left adrenal nodule measuring 3.8 cm. This can be further characterized on an MRI of the abdomen, adrenal mass protocol. 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 -heart healthy diet # ELevated Creatinine 10/24/2024: Creatinine is gradually trending down today 1.09, optimal hydration and continue monitoring 10/23/2024:-no baseline to compare for cr and eGFR, current eGFR is 53 -will monitor daily including rate of eGFR declining with age -optimal hydration # Normochromic Normocytic anemia 10/24/2024: Hemoglobin trending down today, so are WBC and platelet count-most probably from the hemodilution effect, continuous daily monitoring CBC. 10/23/2024:-hemoglobin 13.9, normal MCV and MCH -most probably from the hemodilution versus early part of CORY -daily CBC monitoring # Hx of substance use (EtoH, Tobacco) -monitoring any withdrawal symptoms, we will initiate protocols if it is necessary CODE STATUS: Full code DVT prophylaxis: Sc heparin 5000 units b.i.d. Analgesia/sedation: Dilaudid Lines/tubes: Peripheral IV GI prophylaxis: None Nutrition: Heart healthy Prognosis: Guarded Disposition: Continue medical management, telemetry, heart rate monitoring, pain control, follow up with the pending syncope workups including orthostatic hypotension, PT eval and DC plan. Resident MD attestation: Patient was seen, examined and discussed with attending MD, Dr. Rob PERSON MD Internal Medicine Resident, PGY2 [facility] Date of Service: October 24, 2024 Billing Provider: MASOUD WOODY MD Common Visit Codes: [id number] INP/OBS CARE(HIGH) BERTO PERSON, VANDANA October 24, 2024 16:57 MASOUD WOODY MD October 24, 2024 18:49
[2024-10-24] MEDS: baclofen 10mg tablet PO PRN (19:19)
[2024-10-25 02:00] VITALS: BP 142/78; PULSE 82; RESP 12; TEMP 97; O2SAT 99
[2024-10-25 06:20] LABS: BASOPHILS % (AUTO) 0.2 % (0-1); EOSINOPHILS # (AUTO) 0.2 X10'3 (0-0.9); EOSINOPHILS % (AUTO) 3.7 % (0-6); HEMATOCRIT 37.1 % (42.0-52.0); HEMOGLOBIN 12.6 g/dl (14.0-17.9); LYMPHOCYTES # (AUTO) 1.1 X10'3 (1.1-4.8); LYMPHOCYTES % (AUTO) 18.2 % (21-51); MEAN CORPUSCULAR HEMOGLOBIN 28.5 PG (27.0-31.0); MEAN CORPUSCULAR HGB CONC 33.8 g/dL (33.0-36.5); MEAN CORPUSCULAR VOLUME 84.1 FL (78-98); MONOCYTES # (AUTO) 0.4 X10'3 (0-0.9); NEUTROPHILS # (AUTO) 4.5 X10'3 (1.8-7.7); NEUTROPHILS % (AUTO) 70.9 % (42-75); PLATELET COUNT 220 X10'3 (140-440); RED BLOOD COUNT 4.41 X10'6 (4.70-6.10); WHITE BLOOD COUNT 6.3 X10'3 (4.5-11.0)
[2024-10-25 06:30] LABS: ALANINE AMINOTRANSFERASE 23 U/L (12-78); ALBUMIN 2.9 G/DL (3.4-5.0); ALBUMIN/GLOBULIN RATIO 0.9 (1.1-1.5); ALKALINE PHOSPHATASE 108 IU/L (46-116); ANION GAP 6 (8-16); ASPARTATE AMINO TRANSFERASE 12 U/L (10-37); BILIRUBIN,TOTAL 0.6 MG/DL (0.1-1.0); BLOOD UREA NITROGEN 8 MG/DL (7-18); BUN/CREATININE RATIO 6.6 (10.0-20.0); CALCIUM 8.1 MG/DL (8.5-10.1); CHLORIDE 110 MMOL/L (99-107); CREATININE 1.22 MG/DL (0.60-1.10); GLUCOSE 121 MG/DL (70-104); POTASSIUM 4.1 MMOL/L (3.5-5.1); SODIUM 145 MMOL/L (135-145); TOTAL CARBON DIOXIDE 29.3 MMOL/L (24-32); TOTAL PROTEIN 6.1 G/DL (6.4-8.2); eCRCL 68 ML/MIN; eGFR 59 ML/MIN
[2024-10-25 07:00] VITALS: RESP 14; O2SAT 96
[2024-10-25] MEDS: traMADol 50MG tablet PO PRN (11:37)
[2024-10-25] MEDS: HYDROcodone/acetaminophen 10/325mg tab PO PRN ×2 (14:11→23:45)
--- NOTE | 2024-10-25 17:10 | PROGRESS NOTE- Residence ---
Progress Note - Resident Providers to CC Resident Creating Document: BERTO PERSON, RES ~ Antibiotic Timeout Antibiotic Ordered?: No Subjective The patient is saying that his pain is not controlled really well with IV morphine and Dilaudid 03/07, requested for more potent pain killer at the moment. Every movement is killing his back, patient is wondering if any interventions can do for his back fracture which was explained that orthopedic surgery should not be done for that nondisplaced back fracture, no neurological deficits were reported at the time. Objective Vital Signs Date Time Temp Pulse Resp B/P (MAP) Pulse Ox O2 Delivery O2 Flow Rate FiO2 10/25/24 14:11 18 10/25/24 07:00 96 Room Air 10/25/24 06:30 78 10/25/24 02:00 97.0 142/78 (99) 10/23/24 11:28 2.0 Result Diagram: 10/25/24 0510/25/24518 Vitals were stable at the moment . On exam, General: In acute pain from the back, Well alert, well oriented, not confused, not agitated, not in acute distress, well cooperated during the physical. HEENT: Conjunctive are pink, sclerae clear, no icterus, pupil is equal in both sides, reactive to light, no ear discharge, no pharyngeal erythema or an edema, mouth and lips are slightly dry. Neck: Supple, no JVD, no lymphadenopathy and thyromegaly. Lungs: Equal air entry on both lungs, no additional sounds Heart: S1-S2 irregularly irregular rhythm and, regular rate, no gallops, no rubs, no murmurs Abdomen: No visible peristalsis, Bowel sounds present on auscultation, soft, nontender, no guarding, no rigidity, no SPA fullness Extremities: No obvious deformities, no pitting edema bilaterally, capillary refill intact, able to wiggle toes both sides, peripheral pulsations are intact on both sides PRODUCT EXAMINER: No focal neurological deficits, no motor and sensory weakness in all 4 extremities, could move all 4 extremities Musculoskeletal: No joint swelling, deformities, inflammations, and no scoliosis and back tenderness Skin: No active skin lesions and rashes Assessment Assessment A 69 years old male with a past medical history of AFib with CVR not on any anticoagulation and hx of previous syncopes presented with the frequent syncope attacks resulted into Acute lumbar fractures L1-4 from GLF. Plan Plan # Syncope # GLF complicated w/ acute Lumbar fracture L1-4 w/o FNDs 10/25/2024: Ordered EEG, MRI head were pending -we will consider to consult with tele neurology consultation as per results -CT head was clear, orthostatic hypotension was limited because of his back pain -continuous telemetry monitoring did not show any possible bradycardia/arrhythmia -PT eval -pain control with [place] 10 q.4 hours as needed and tramadol 50 mg q.8 hours as PRN 10/24/2024: He had MRI lumbar spine scan IMPRESSION: 1. Acute, nondisplaced fractures of the left L1 through L4 transverse processes are better demonstrated on recent CT exam, partially visualized on the coronal STIR sequence on this exam with adjacent soft tissue edema. 2. Degenerative disc disease and facet disease in the lumbar spine with associated spinal canal, subarticular, and neural foraminal stenoses as detailed above. 3. Epidural lipomatosis contributes to the spinal canal stenoses. -continue pain medication, would encourage to movement and avoid bed-bound as much as possible once the pain is controlled, PT eval -Pending Orthostatic hypotension test 10/23/2024: -electrolytes are within normal limits -RBS 114 -Tox urine show negative except for the opiate which could be from the previous ER visit prescription -Trop showed -thoracic/lumbar spine CT scan showed IMPRESSION: 1. Acute fractures of the left L1, L2, L3, L4 transverse processes. 2. Arbj-lu-brzypjyc thoracolumbar degenerative disc disease. 3. No pulmonary airspace consolidation. 4. No pulmonary airspace consolidation. 5. Atherosclerotic / coronary artery calcification disease. 6. Pulmonary emphysematous changes. 7. Indeterminate left adrenal nodule measuring 3.8 cm. This can be further characterized on an MRI of the abdomen, adrenal mass protocol. 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 -heart healthy diet # ELevated Creatinine 10/25/2024: Creatinine showing a little bit increase today, continue IV fluid, monitor I's and O's 10/24/2024: Creatinine is gradually trending down today 1.09, optimal hydration and continue monitoring 10/23/2024:-no baseline to compare for cr and eGFR, current eGFR is 53 -will monitor daily including rate of eGFR declining with age -optimal hydration # Normochromic Normocytic anemia 10/24/2024: Hemoglobin trending down today, so are WBC and platelet count-most probably from the hemodilution effect, continuous daily monitoring CBC. 10/23/2024:-hemoglobin 13.9, normal MCV and MCH -most probably from the hemodilution versus early part of CORY -daily CBC monitoring # Hx of substance use (EtoH, Tobacco) -monitoring any withdrawal symptoms, we will initiate protocols if it is necessary CODE STATUS: Full code DVT prophylaxis: Sc heparin 5000 units b.i.d. Analgesia/sedation: Dilaudid Lines/tubes: Peripheral IV GI prophylaxis: None Nutrition: Heart healthy Prognosis: Guarded Disposition: Continue medical management, telemetry, heart rate monitoring, pain control, follow up with the pending syncope workups including orthostatic hypotension, EEG and MRI brain, PT eval and DC plan. Resident MD attestation: Patient was seen, examined and discussed with attending MD, Dr. Sanchez PERSON MD Internal Medicine Resident, PGY2 [facility] Date of Service: October 25, 2024 Billing Provider: NINA MAYORGA MD Common Visit Codes: [id number] INP/OBS CARE(HIGH) BERTO PERSON RES October 25, 2024 17:10 NINA MAYORGA MD October 25, 2024 19:13
[2024-10-25 18:00] VITALS: BP 113/71; PULSE 79; RESP 12; TEMP 97; O2SAT 95
--- NOTE | 2024-10-25 19:33 | [facility] CONSULT REPORT ---
[facility] Procedure Note [facility] Procedure Note Consult [facility] Note # Demographics Type of EEG Read: - Routine EEG - video Patient Location: Inpatient First Name: Lester Last Name: Raiza Date of : 1955 Age: 69 Gender: Male Facility: [facility] Time of Initial Page (Hubbard ): 10/25/2024 14:16 Time of Return Call (Hubbard Time): 10/25/2024 14:16 # EEG Interpretation Start Time of EEG Read (Hubbard Time): 10/25/2024 14:34 Stop Time of EEG Read (Hubbard ): 10/25/2024 14:55 Duration: 0h 21m Technical Details: - The EEG electrodes were placed using the standard International 10-20 system of electrode placement. Video and an accessory EKG lead were used during the course of this study. - This study was recorded using the [employer] EEG software Indication: - syncope # Description Photic Stimulation: NOT Performed Hyperventilation: NOT performed Phases Captured: - awake - drowsy Symmetry: symmetric Posterior Dominant Rhythm: The record is continuous, of normal amplitude and bilaterally symmetrical. There was no clear posterior dominant rhythm. There is a moderate amount of diffuse low amplitude 15-25 Hz beta activity and an moderate amount of 4-7 Hz theta activity. Moderate <4 Hz delta activity is present during wakefulness. Amplitude: normal Reactivity: unclear Variability: unclear Continuity: continuous EKG: artifactual # Abnormalities Epileptiform Abnormalities: - NOT present Focal Slowing: no Seizure: - NOT present No push button events. # Impression Impression: abnormal 1. Diffuse Slowing # Clinical Correlation Clinical Correlation: 1. Diffuse slowing is non-specific and may be seen in the setting of diffuse cerebral dysfunction; such as toxic/metabolic/infectious encephalopathy or heavily sedating medication use. # Demographics First Name: Lester Last Name: Raiza Facility: [facility] SUSANA KEN MD October 25, 2024 19:33
[2024-10-25 20:00] VITALS: BP_SYST 113; BP_SYST 12; BP_DIAS 71; RESP 19; O2SAT 95
--- NOTE | 2024-10-25 21:14 | RADIOLOGY REPORT ---
[facility] EXAM[facility]: MR MRI HEAD INDICATION: Syncope, ruled out other casues COMPARISON: CT CT HEAD on DOS: 10/22/24 TECHNIQUE: Multiplanar, multisequence magnetic resonance imaging of the brain was performed without the use of i ntravenous contrast. FINDINGS: No evidence of acute or remote infarct. No intracranial hemorrhage. No mass effect. There is periventricular/deep white matter T2/FLAIR hyperintensity is nonspecific, but most commonly associated with chronic microvascular disease. The ventricles and sulci are normal in size for age. Clear basal cisterns. Flow voids in the major intracranial vessels are maintained. No abnormality of the orbits. Paranasal sinuses and mastoid air cells are clear. No abnormality of the visualized osseous structures and extracranial soft tissues. IMPRESSION: No acute infarct, intracranial hemorrhage, mass effect, or hydrocephalus.
[2024-10-25 22:00] VITALS: BP 131/68; PULSE 71; RESP 16; TEMP 97; O2SAT 97
[2024-10-26 02:00] VITALS: BP 121/74; PULSE 73; RESP 13; TEMP 97; O2SAT 96
[2024-10-26 06:46] LABS: BASOPHILS % (AUTO) 0.3 % (0-1); EOSINOPHILS # (AUTO) 0.3 X10'3 (0-0.9); EOSINOPHILS % (AUTO) 4.5 % (0-6); LYMPHOCYTES # (AUTO) 1.3 X10'3 (1.1-4.8); LYMPHOCYTES % (AUTO) 20.9 % (21-51); MEAN CORPUSCULAR HEMOGLOBIN 28.7 PG (27.0-31.0); MEAN CORPUSCULAR HGB CONC 34.2 g/dL (33.0-36.5); MEAN CORPUSCULAR VOLUME 84.1 FL (78-98); MEAN PLATELET VOLUME 7.7 FL (7.4-10.4); MONOCYTES # (AUTO) 0.5 X10'3 (0-0.9); MONOCYTES % (AUTO) 8.4 % (2-12); NEUTROPHILS # (AUTO) 4.2 X10'3 (1.8-7.7); NEUTROPHILS % (AUTO) 65.9 % (42-75); PLATELET COUNT 232 X10'3 (140-440); RED BLOOD COUNT 4.16 X10'6 (4.70-6.10); WHITE BLOOD COUNT 6.4 X10'3 (4.5-11.0)
[2024-10-26 07:10] LABS: ALANINE AMINOTRANSFERASE 20 U/L (12-78); ALBUMIN 2.8 G/DL (3.4-5.0); ALBUMIN/GLOBULIN RATIO 0.9 (1.1-1.5); ALKALINE PHOSPHATASE 104 IU/L (46-116); ANION GAP 6 (8-16); ASPARTATE AMINO TRANSFERASE 11 U/L (10-37); BILIRUBIN,TOTAL 0.7 MG/DL (0.1-1.0); BLOOD UREA NITROGEN 10 MG/DL (7-18); CALCIUM 7.8 MG/DL (8.5-10.1); CHLORIDE 109 MMOL/L (99-107); CREATININE 1.25 MG/DL (0.60-1.10); GLUCOSE 94 MG/DL (70-104); SODIUM 143 MMOL/L (135-145); TOTAL CARBON DIOXIDE 27.7 MMOL/L (24-32); TOTAL PROTEIN 5.9 G/DL (6.4-8.2); eCRCL 67 ML/MIN; eGFR 58 ML/MIN
[2024-10-26 08:00] VITALS: BP_SYST 132; BP_SYST 138; BP_DIAS 81; PULSE 74; PULSE 80; RESP 16; O2SAT 96
--- NOTE | 2024-10-26 10:35 | [facility] NEURO CONSULT REPORT ---
[facility] Procedure Note [facility] Procedure Note Consult [facility] Note # Demographics Consult Type: General Neurology Patient Location: Inpatient First Name: MAGY Last Name: BAIRON Date of : 1955 Age: 69 Gender: Male Facility: [facility] Time of Initial Page (Stewart Time): 10/26/2024 10:17 Time of Return Call (Stewart Time): 10/26/2024 10:17 # HPI History: 69yom with a fib (not on AC) who p/w multiple syncopal episodes and resultant L1-L4 lumbar fractures. Prior to passing out, he has feelings of hot flashes, lightheadedness, and dizziness. Sometimes feels disoriented after waking up from the syncopal episode. He says this started 8 months ago. Seemed to improve, and then started occurring again 4 days ago. He says the episodes usually occur after standing. Reportedly, after he stands he usually goes "limp". No reported seizure like activity. It is unclear how long he is unconscious for. Workup in the hospital consistent with EEG with diffuse slowing. MRI brain with no acute findings. # Exam Mental Status: - awake - alert and oriented x 3 Language: - normal speech - no aphasia Cranial Nerves: - normal - extra ocular movements intact Motor: - normal strength Sensory: - normal sensation # Data MRI: - no acute ischemia - per radiologist read # Assessment Impression: Syncopal episodes sound most consistent with cardiogenic/orthostatic hypotension and would be atypical for seizure. Recommend full workup for cardiac causes of syncope. If no other obvious causes, referral to neurology for further workup for seizure and could consider a trial of AEDs at that time # Plan Other: - If patient has any neurological deterioration please call me back immediately - neurology referral as outpatient # Demographics First Name: MAGY Last Name: BAIRON Facility: [facility] Neuro Consult Order placed for: Yes ANURAG PASTRANA MD October 26, 2024 10:35
[2024-10-26 16:00] VITALS: BP_SYST 132; BP_SYST 138; BP_DIAS 81; PULSE 74; PULSE 80
--- NOTE | 2024-10-26 17:32 | PROGRESS NOTE- Residence ---
Progress Note - Resident Providers to CC Resident Creating Document: CONSTANTINO YOUNG RES ~ Antibiotic Timeout Antibiotic Ordered?: No Subjective Patient seen and examined today. No new complaints. Continues to have back pain Objective Vital Signs Date Time Temp Pulse Resp B/P (MAP) Pulse Ox O2 Delivery O2 Flow Rate FiO2 10/26/24 06:30 71 10/26/24 02:00 97.0 13 121/74 (90) 96 Room Air 10/25/24 20:00 2.0 Result Diagram: 10/26/24 0609 10/26/24 0609 General: In acute pain from the back, Well alert, well oriented, not confused, not agitated, not in acute distress, well cooperated during the physical. HEENT: Conjunctive are pink, sclerae clear, no icterus, pupil is equal in both sides, reactive to light, no ear discharge, no pharyngeal erythema or an edema, mouth and lips are slightly dry. Neck: Supple, no JVD, no lymphadenopathy and thyromegaly. Lungs: Equal air entry on both lungs, no additional sounds Heart: S1-S2 irregularly irregular rhythm and, regular rate, no gallops, no rubs, no murmurs Abdomen: No visible peristalsis, Bowel sounds present on auscultation, soft, nontender, no guarding, no rigidity, no SPA fullness Extremities: No obvious deformities, no pitting edema bilaterally, capillary refill intact, able to wiggle toes both sides, peripheral pulsations are intact on both sides CATTLE BROKER: No focal neurological deficits, no motor and sensory weakness in all 4 extremities, could move all 4 extremities Musculoskeletal: No joint swelling, deformities, inflammations, and no scoliosis and back tenderness Skin: No active skin lesions and rashes Assessment Assessment A 69 years old male with a past medical history of AFib with CVR not on any anticoagulation and hx of previous syncopes presented with the frequent syncope attacks resulted into Acute lumbar fractures L1-4 from GLF. Plan Plan # Syncope # GLF complicated w/ acute Lumbar fracture L1-4 w/o FNDs 10/26/2024: Head MRI negative for any acute intracranial changes. Chronic microvascular disease present. EEG showed diffuse slowing and no epileptiform abnormalities. -Tele neurology consult requested and they stated that it is atypical for it to be a seizure. Recommended full workup for cardiac causes of syncope. If no other obvious causes, referral to neurology for further workup for seizure and could consider a trial of AEDs at that time. Per nurse, orthostats negative 10/25/2024: Ordered EEG, MRI head were pending -we will consider to consult with tele neurology consultation as per results -CT head was clear, orthostatic hypotension was limited because of his back pain -continuous telemetry monitoring did not show any possible bradycardia/arrhythmia -PT eval -pain control with [place] 10 q.4 hours as needed and tramadol 50 mg q.8 hours as PRN 10/24/2024: He had MRI lumbar spine scan IMPRESSION: 1. Acute, nondisplaced fractures of the left L1 through L4 transverse processes are better demonstrated on recent CT exam, partially visualized on the coronal STIR sequence on this exam with adjacent soft tissue edema. 2. Degenerative disc disease and facet disease in the lumbar spine with associated spinal canal, subarticular, and neural foraminal stenoses as detailed above. 3. Epidural lipomatosis contributes to the spinal canal stenoses. -continue pain medication, would encourage to movement and avoid bed-bound as much as possible once the pain is controlled, PT eval -Pending Orthostatic hypotension test 10/23/2024: -electrolytes are within normal limits -RBS 114 -Tox urine show negative except for the opiate which could be from the previous ER visit prescription -Trop showed -thoracic/lumbar spine CT scan showed IMPRESSION: 1. Acute fractures of the left L1, L2, L3, L4 transverse processes. 2. [id number]-jh-[id number] thoracolumbar degenerative disc disease. 3. No pulmonary airspace consolidation. 4. No pulmonary airspace consolidation. 5. Atherosclerotic / coronary artery calcification disease. 6. Pulmonary emphysematous changes. 7. Indeterminate left adrenal nodule measuring 3.8 cm. This can be further characterized on an MRI of the abdomen, adrenal mass protocol. - pending bilateral carotid artery USG -pending Orthostatic hypotension test -monitor vitals -pending 2D echocardiogram # Afib w/ CVR, FRANNY VASC SCORE -1 On 10/26/2024: Rate well controlled. On metoprolol succinate 25 mg p.o. 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 -heart healthy diet # ELevated Creatinine 10/26/2024: Creatinine stable. Continue IV fluids 10/25/2024: Creatinine showing a little bit increase today, continue IV fluid, monitor I's and O's 10/24/2024: Creatinine is gradually trending down today 1.09, optimal hydration and continue monitoring 10/23/2024:-no baseline to compare for cr and eGFR, current eGFR is 53 -will monitor daily including rate of eGFR declining with age -optimal hydration # Normochromic Normocytic anemia 10/26/2024: H&H stable 10/24/2024: Hemoglobin trending down today, so are WBC and platelet count-most probably from the hemodilution effect, continuous daily monitoring CBC. 10/23/2024:-hemoglobin 13.9, normal MCV and MCH -most probably from the hemodilution versus early part of CORY -daily CBC monitoring # Hx of substance use (EtoH, Tobacco) -monitoring any withdrawal symptoms, we will initiate protocols if it is necessary CODE STATUS: Full code DVT prophylaxis: Sc heparin 5000 units b.i.d. Analgesia/sedation: Dilaudid Lines/tubes: Peripheral IV GI prophylaxis: None Nutrition: Heart healthy Prognosis: Guarded Disposition: Continue medical management, telemetry, heart rate monitoring, pain control, needs outpatient cardiology and neurology follow up. Pending PT evaluation Constantino Young MD Internal Medicine Resident, PGY 2 Addendum ac back pain 2 to transverse processes fx L1 thr L4; pain under better control, PT Date of Service: October 26, 2024 Billing Provider: NINA MAYORGA MD Common Visit Codes: [id number] INP/OBS CARE(HIGH) CONSTANTINO YOUNG RES October 26, 2024 17:32 NINA MAYORGA MD October 26, 2024 19:12
[2024-10-26 18:00] VITALS: BP 126/70; PULSE 86; RESP 15; TEMP 97.4; O2SAT 92
[2024-10-26 20:00] VITALS: BP_SYST 132; BP_SYST 138; BP_DIAS 81; PULSE 74; PULSE 80; RESP 15; O2SAT 92
[2024-10-26] MEDS: guaiFENesin ER 600mg tablet PO SCH (20:00)
[2024-10-26 22:00] VITALS: BP 134/69; PULSE 80; RESP 20; TEMP 97.5; O2SAT 94
[2024-10-27] VITALS (9 sets, daily range): BP systolic 98–143; BP diastolic 60–78; PULSE 70–93; RESP 15–20; TEMP 97–97.5; O2SAT 91–98
[2024-10-27 06:56] LABS: BASOPHILS % (AUTO) 0.3 % (0-1); EOSINOPHILS # (AUTO) 0.2 X10'3 (0-0.9); HEMATOCRIT 36.2 % (42.0-52.0); HEMOGLOBIN 12.4 g/dl (14.0-17.9); LYMPHOCYTES # (AUTO) 1.1 X10'3 (1.1-4.8); MEAN CORPUSCULAR HEMOGLOBIN 28.7 PG (27.0-31.0); MEAN CORPUSCULAR HGB CONC 34.4 g/dL (33.0-36.5); MEAN CORPUSCULAR VOLUME 83.5 FL (78-98); MEAN PLATELET VOLUME 7.7 FL (7.4-10.4); MONOCYTES # (AUTO) 0.5 X10'3 (0-0.9); MONOCYTES % (AUTO) 6.8 % (2-12); NEUTROPHILS # (AUTO) 5.6 X10'3 (1.8-7.7); NEUTROPHILS % (AUTO) 74.9 % (42-75); PLATELET COUNT 253 X10'3 (140-440); RED BLOOD COUNT 4.34 X10'6 (4.70-6.10); RED CELL DISTRIBUTION WIDTH 12.8 % (11.5-14.5); WHITE BLOOD COUNT 7.5 X10'3 (4.5-11.0)
[2024-10-27 07:19] LABS: ALANINE AMINOTRANSFERASE 26 U/L (12-78); ALBUMIN 2.9 G/DL (3.4-5.0); ALBUMIN/GLOBULIN RATIO 0.9 (1.1-1.5); ALKALINE PHOSPHATASE 132 IU/L (46-116); ANION GAP 8 (8-16); ASPARTATE AMINO TRANSFERASE 15 U/L (10-37); BILIRUBIN,TOTAL 0.8 MG/DL (0.1-1.0); BLOOD UREA NITROGEN 8 MG/DL (7-18); CALCIUM 8.3 MG/DL (8.5-10.1); CHLORIDE 108 MMOL/L (99-107); CREATININE 1.14 MG/DL (0.60-1.10); GLUCOSE 93 MG/DL (70-104); POTASSIUM 4.1 MMOL/L (3.5-5.1); SODIUM 143 MMOL/L (135-145); TOTAL CARBON DIOXIDE 27.5 MMOL/L (24-32); TOTAL PROTEIN 6.3 G/DL (6.4-8.2); eCRCL 73 ML/MIN; eGFR 64 ML/MIN
[2024-10-27] MEDS ORDERED: HYDROcodone/acetaminophen 5mg/325mg tablet PO PRN (12:50)
[2024-10-27] MEDS: predniSONE 20 mg tablet PO ONE (14:02)
--- NOTE | 2024-10-27 18:37 | PROGRESS NOTE- Residence ---
Progress Note - Resident Providers to CC Resident Creating Document: LAKEISHAKIANAANDRÉS RES ~ Antibiotic Timeout Antibiotic Ordered?: No Subjective Patient seen and examined today. No new complaints. Continues to have back pain , 0/10 while lying down and when shifted to right-sided it is 10/10. and spinning sensation. Endorses hallucinations. He is complaining of the swelling over the ankle because of the gout. Objective Vital Signs Date Time Temp Pulse Resp B/P (MAP) Pulse Ox O2 Delivery O2 Flow Rate FiO2 10/27/24 14:33 82 130/78 (95) 10/27/24 08:00 16 91 Room Air 10/27/24 02:00 97.3 10/25/24 20:00 2.0 Result Diagram: 10/27/2462910/27/24629 General: Well alert, well oriented, not confused, not agitated, not in acute distress, well cooperated during the physical. HEENT: Conjunctive are pink, sclerae clear, no icterus, pupil is equal in both sides, reactive to light, no ear discharge, no pharyngeal erythema or an edema, mouth and lips are slightly dry. Neck: Supple, no JVD, no lymphadenopathy and thyromegaly. Lungs: Equal air entry on both lungs, no additional sounds Heart: S1-S2 irregularly irregular rhythm and, regular rate, no gallops, no rubs, no murmurs Abdomen: No visible peristalsis, Bowel sounds present on auscultation, soft, nontender, no guarding, no rigidity, no SPA fullness Extremities: No obvious deformities, no pitting edema bilaterally, capillary refill intact, able to wiggle toes both sides, peripheral pulsations are intact on both sides. 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 Plan Plan # Syncope # GLF complicated w/ acute Lumbar fracture L1-4 w/o FNDs 10/27/2024: We started the patient on Keppra 500 mg p.o. b.i.d. for syncope secondary to seizures. Patient needs the Neurology outpatient referral. Started on Victor for back pain 10/26/2024: Head MRI negative for any acute intracranial changes. Chronic microvascular disease present. EEG showed diffuse slowing and no epileptiform abnormalities. -Tele neurology consult requested and they stated that it is atypical for it to be a seizure. Recommended full workup for cardiac causes of syncope. If no other obvious causes, referral to neurology for further workup for seizure and could consider a trial of AEDs at that time. Per nurse, orthostats negative 10/25/2024: Ordered EEG, MRI head were pending -we will consider to consult with tele neurology consultation as per results -CT head was clear, orthostatic hypotension was limited because of his back pain -continuous telemetry monitoring did not show any possible bradycardia/arrhythmia -PT eval -pain control with Victor 10 q.4 hours as needed and tramadol 50 mg q.8 hours as PRN 10/24/2024: He had MRI lumbar spine scan IMPRESSION: 1. Acute, nondisplaced fractures of the left L1 through L4 transverse processes are better demonstrated on recent CT exam, partially visualized on the coronal STIR sequence on this exam with adjacent soft tissue edema. 2. Degenerative disc disease and facet disease in the lumbar spine with associated spinal canal, subarticular, and neural foraminal stenoses as detailed above. 3. Epidural lipomatosis contributes to the spinal canal stenoses. -continue pain medication, would encourage to movement and avoid bed-bound as much as possible once the pain is controlled, PT eval -Pending Orthostatic hypotension test 10/23/2024: -electrolytes are within normal limits -RBS 114 -Tox urine show negative except for the opiate which could be from the previous ER visit prescription -Trop showed -thoracic/lumbar spine CT scan showed IMPRESSION: 1. Acute fractures of the left L1, L2, L3, L4 transverse processes. 2. Thum-yf-unoqpbmy thoracolumbar degenerative disc disease. 3. No pulmonary airspace consolidation. 4. No pulmonary airspace consolidation. 5. Atherosclerotic / coronary artery calcification disease. 6. Pulmonary emphysematous changes. 7. Indeterminate left adrenal nodule measuring 3.8 cm. This can be further characterized on an MRI of the abdomen, adrenal mass protocol. - pending bilateral carotid artery USG -pending Orthostatic hypotension test -monitor vitals -pending 2D echocardiogram Acute gout on left ankle Started on prednisolone 40 mg once daily dose # Afib w/ CVR, FRANNY VASC SCORE -1 10/27/2024: Continue metoprolol 25 mg p.o. daily, rate is well controlled On 10/26/2024: Rate well controlled. On metoprolol succinate 25 mg p.o. 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 -heart healthy diet CRYSTAL likely secondary to renal tubular stasis 10/27/2024: Creatinine is stabilized. Continue IV normal saline. 10/26/2024: Creatinine stable. Continue IV fluids 10/25/2024: Creatinine showing a little bit increase today, continue IV fluid, monitor I's and O's 10/24/2024: Creatinine is gradually trending down today 1.09, optimal hydration and continue monitoring 10/23/2024:-no baseline to compare for cr and eGFR, current eGFR is 53 -will monitor daily including rate of eGFR declining with age -optimal hydration # Normochromic Normocytic anemia 10/27/2024: H&H is 12.4 and 36.2, stable 10/26/2024: H&H stable 10/24/2024: Hemoglobin trending down today, so are WBC and platelet count-most probably from the hemodilution effect, continuous daily monitoring CBC. 10/23/2024:-hemoglobin 13.9, normal MCV and MCH -most probably from the hemodilution versus early part of CORY -daily CBC monitoring # Hx of substance use (EtoH, Tobacco) -monitoring any withdrawal symptoms, we will initiate protocols if it is necessary CODE STATUS: Full code DVT prophylaxis: Sc heparin 5000 units b.i.d. Analgesia/sedation: Dilaudid Lines/tubes: Peripheral IV GI prophylaxis: None Nutrition: Heart healthy Prognosis: Guarded PT: Home discharge with DC barrier Andrés Fonseca MD Internal Medicine Resident, PGY 1 Addendum hallucinations, likely narcotic induced; unfortunately in the view of poss seizures tramadol contraindicated; try lower dose norco had discussion with pt about poss etiologies of his syncope, due to the dramatic result of his last episode injuring his spine, pt is willing to start AED Date of Service: Oct 27, 2024 Billing Provider: NINA MAYORGA MD Common Visit Codes: 63819-[id number] INP/OBS CARE(HIGH) ANDRÉS FONSECA, RES Oct 27, 2024 18:37 NINA MAYORGA MD Oct 27, 2024 21:09
[2024-10-27] MEDS: levetiracetam 250mg tablet PO SCH (21:30)
[2024-10-28] MEDS ORDERED: calamine LOTION TP PRN (00:20)
[2024-10-28] MEDS ORDERED: acetaminophen 325mg tablet PO PRN (00:25)
[2024-10-28 02:00] VITALS: BP 124/79; PULSE 71; RESP 14; TEMP 97; O2SAT 96
[2024-10-28] MEDS: acetaminophen 325mg tablet PO PRN (06:09)
[2024-10-28 07:10] LABS: BASOPHILS % (AUTO) 0.1 % (0-1); EOSINOPHILS % (AUTO) 0 % (0-6); HEMOGLOBIN 12.5 g/dl (14.0-17.9); LYMPHOCYTES # (AUTO) 1.1 X10'3 (1.1-4.8); MEAN CORPUSCULAR HEMOGLOBIN 28.4 PG (27.0-31.0); MEAN CORPUSCULAR HGB CONC 33.7 g/dL (33.0-36.5); MEAN CORPUSCULAR VOLUME 84.2 FL (78-98); MONOCYTES # (AUTO) 0.6 X10'3 (0-0.9); MONOCYTES % (AUTO) 6.5 % (2-12); NEUTROPHILS # (AUTO) 7.4 X10'3 (1.8-7.7); NEUTROPHILS % (AUTO) 81.4 % (42-75); PLATELET COUNT 271 X10'3 (140-440); WHITE BLOOD COUNT 9.1 X10'3 (4.5-11.0)
[2024-10-28 07:14] LABS: ALANINE AMINOTRANSFERASE 35 U/L (12-78); ALBUMIN/GLOBULIN RATIO 0.8 (1.1-1.5); ALKALINE PHOSPHATASE 134 IU/L (46-116); ANION GAP 11 (8-16); ASPARTATE AMINO TRANSFERASE 22 U/L (10-37); BILIRUBIN,TOTAL 0.7 MG/DL (0.1-1.0); BLOOD UREA NITROGEN 15 MG/DL (7-18); CALCIUM 8.4 MG/DL (8.5-10.1); CHLORIDE 107 MMOL/L (99-107); CREATININE 1.15 MG/DL (0.60-1.10); GLUCOSE 114 MG/DL (70-104); POTASSIUM 4.1 MMOL/L (3.5-5.1); SODIUM 143 MMOL/L (135-145); TOTAL CARBON DIOXIDE 24.7 MMOL/L (24-32); TOTAL PROTEIN 6.6 G/DL (6.4-8.2); eCRCL 72 ML/MIN; eGFR 63 ML/MIN
[2024-10-28 07:27] VITALS: BP 141/78; PULSE 70; RESP 16; TEMP 97.2; O2SAT 95
[2024-10-28 08:00] VITALS: RESP 20; O2SAT 95
[2024-10-28] MEDS ORDERED: BAC10T PO (10:56)
[2024-10-28] MEDS ORDERED: LEVE250T PO (10:56)
[2024-10-28] MEDS ORDERED: FURO-150 PO (10:56)
[2024-10-28] MEDS ORDERED: HYDR-3965 PO (10:56)
[2024-10-28 11:00] VITALS: BP 130/69; PULSE 83; RESP 20; TEMP 97.5; O2SAT 95
--- NOTE | 2024-10-28 19:11 | DISCHARGE SUMMARY-Residence ---
Discharge Summary Providers to CC Resident Creating Document: CAMRYN MORENO RES ~ Discharge Summary Admission Diagnosis: syncopal episode , SVT , fall , CAD Hospital Course DATE OF ADMISSION: 10/23/2024 DATE OF DISCHARGE: 10/28/2024 Hospital course same as mentioned discharge summary. Discharge Diagnosis\Comment: # Syncope # GLF complicated w/ acute Lumbar fracture L1-4 w/o FNDs Acute gout on left ankle # Afib w/ CVR, MILAN VASC SCORE -1 # HLD CRYSTAL likely secondary to renal tubular stasis # Normochromic Normocytic anemia # Hx of substance use (EtoH, Tobacco) Operations\Procedures: None Consultants: Tele neuro Complications: None Condition on DC: Stable New Medications: Furosemide (Lasix) 20 Mg Tablet 20 MG PO DAILY, #30 TAB Hydrocodone Bit/Acetaminophen 5/325 MG ([place] 5/325 MG) 5 Mg/325 Mg Tablet 1 TAB PO Q6H PRN for pain, #14 TAB Baclofen (Baclofen) 10 Mg Tablet 10 MG PO Q8H PRN for muscle spasms, #30 TAB FALL RISK Levetiracetam (Levetiracetam) 250 Mg Tablet 500 MG PO BID, #120 TAB Continued Medications: Metoprolol Succinate (Metoprolol Succinate) 25 Mg Tab.sr.24h 1 TAB PO DAILY Rosuvastatin Calcium (Rosuvastatin Calcium) 20 Mg Tablet 1 TAB PO HS Discharge Summary: As per HPI: A 69 years old male with a past medical history of AFib with CVR not on any anticoagulation and hx of previous syncopes presented with the frequent syncope attacks resulted into Acute lumbar fractures L1-4 from GLF. He stated that he has passed out total three times in ER this time with some prodromal symptoms of hot flashes, preformed idea of being about to pass out, light headness, and dizziness without having any chest pain pressure or discomfort when he stood up from sitting to standing in ER. He denies palpitations, FNDs, loss of bowel and bladder dysfunction, visual changes, and seizure like activity. He endorsed that he has a confusion, disorientation when he woke up from the syncope. 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 He was found by his Girlfriend at home on the floor with some bruises at the ear nose and nasal bridges. He was released from ER yesterday and got another syncope with prodromal neuro symptoms at his work bathroom after he had urinated and passed out on his back. He has previous syncopes for another total 3 times with no prodromal symptoms for which he visited Dr Jerez office last 5 months ago, where he did not find a s pecific reason of syncope including bilateral carotid stenosis etc except for the Afib for which he had an electro cardioversion. He denies travel history, sick contact, hx of seizures, and other illicit usage of drugs. Hospital course: On further evaluation electrolytes are within normal limits. Urine toxicology negative. CT of the thoracic of the lumbar spine findings positive for acute fracture of the left L1-L2 L3-L4 transverse processes. MRI of the lumbar spine acute nondisplaced fractures of the left L1 through L4 transverse processes. Degenerative disc disease and facet disease. CT and MRI head negative. Tele neuro recommended that it is atypical for it to be a seizure, recommended cardiac syncope workup. Cardiac syncope workup negative so far. Discussed in detail with the patient the possibility of seizure and recommended that we can try Keppra 500 b.i.d. for possible seizure. He also recommended that he needs to follow up with Neurology outpatient. He also had an acute gout flare in the left ankle and was started on prednisolone 40 daily. AFib rate controlled, [place] Vasc one hence no anticoagulation. He CRYSTAL likely secondary to stasis, was given IV fluids and BMP monitored. His hospital course is uncomplicated he is hemodynamically stable on the day of discharge and her physical exam is as follows: General: Well alert, well oriented, not confused, not agitated, not in acute distress, well cooperated during the physical. HEENT: Conjunctive are pink, sclerae clear, no icterus, pupil is equal in both sides, reactive to light, no ear discharge, no pharyngeal erythema or an edema, mouth and lips are slightly dry. Neck: Supple, no JVD, no lymphadenopathy and thyromegaly. Lungs: Equal air entry on both lungs, no additional sounds Heart: S1-S2 irregularly irregular rhythm and, regular rate, no gallops, no rubs, no murmurs Abdomen: No visible peristalsis, Bowel sounds present on auscultation, soft, nontender, no guarding, no rigidity, no SPA fullness Extremities: No obvious deformities, no pitting edema bilaterally, capillary refill intact, able to wiggle toes both sides, peripheral pulsations are intact on both sides. 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 Patient is being discharged with the following advice follow up with outpatient Neurology and PCP. *Problems/Diagnosis: (1) Syncope Status: Acute Total Time Spent on D/C: > 30 Minutes Addendum pt strongly advised to not drive till cleared by neurology Date of Service: Oct 28, 2024 Billing Provider: NINA MAYORGA MD Common Visit Codes: 54591-NTE/OBS DISCH DAY >30min Problem Qualifiers (1) Syncope: Syncope type: unspecified Qualified Codes: R55 - Syncope and collapse CAMRYN MORENO, RES Oct 28, 2024 19:11 NINA MAYORGA MD Oct 28, 2024 20:35
== END 2024-10-28 13:36 | disposition home health service (06) | DRG 551 ==
LOC: ER 10:46 → ED HOLD 13:29 → PCU 3S 15:22
PROVIDERS: ADMIT Internal Medicine; ATTEND Internal Medicine
PROC: 5A2204Z Restoration of Cardiac Rhythm, Single (ICD-10-PCS; 2024-10-23)
PROC: 4A00X4Z Measurement of Central Nervous Electrical Activity, External Approach (ICD-10-PCS; principal; 2024-10-25)
DX: S32.018A Other fracture of first lumbar vertebra, initial encounter for closed fracture (principal); N17.0 Acute kidney failure with tubular necrosis; I47.10 Supraventricular tachycardia, unspecified; S32.028A Other fracture of second lumbar vertebra, initial encounter for closed fracture; S32.038A Other fracture of third lumbar vertebra, initial encounter for closed fracture; S32.048A Other fracture of fourth lumbar vertebra, initial encounter for closed fracture; I48.91 Unspecified atrial fibrillation; E78.5 Hyperlipidemia, unspecified; D64.9 Anemia, unspecified; M51.369 Other intervertebral disc degeneration, lumbar region without mention of lumbar back pain or lower extremity pain; X58.XXXA Exposure to other specified factors, initial encounter; Y93.89 Activity, other specified; Y92.89 Other specified places as the place of occurrence of the external cause; Y99.8 Other external cause status
CPT/HCPCS: 36415; 70551; 71045; 71250; 72128; 72131; 72148; 80053; 80305; 81001; 83735; 83880; 84484; 85025; 87081; 93005; 93306; 93880; 95816; 96361; 96374; 96375; 96376; 97116; 97161; 97530; 99285; A4620; G0378; J1171; J1644; J2270; J3490; J7030; J7120; J7512

== ENCOUNTER 2025-04-09 16:11 | Emergency (ER) | payer BC, MEDICARE ==
[~2025-04-09] VITALS: Ht 188 cm; Wt 112.3 kg
[~2025-04-09 16:11] MED LIST changes: +BACL-145 PO; -CYCL-1 PO; +FURO-150 PO; +LEVE250T PO; +METO-395 PO; +ROSU20TA98 PO
--- NOTE | 2025-04-09 16:18 | ELECTROCARDIOGRAPH REPORT ---
[facility] Test Date: 2025-04-09 Test Time: 16:16:47 Pat Name: MAGY WADDELL Department: EMERGENCY ROOM Patient ID: [id number] Room: Gender: M It Manager: ANN : 1955 Requested By: CHEMO HILL Order Number: [id number] Reading MD: Dr. ELVIS Anthony Measurements Intervals Stephens Rate: 109 P: 27 MA: 158 QRS: 12 QRSD: 95 T: 19 QT: 341 QTc: 460 Interpretive Statements Sinus tachycardia Borderline T abnormalities, anterior leads Electronically Signed On 04-11-2025 18:02:[address] ELVIS Anthony Please click the below link to view image of tracing.
--- NOTE | 2025-04-09 16:26 | Physician Documentation ---
History of Present Illness Stated Complaint: BACK PAIN/CP Primary Medical Doctor: NONE HPI Old male presents to the emergency department for evaluation of chest pain over the last 8 days. Patient reports the chest pain radiates into his back. Patient reports that his back pain in his lumbar region in addition to new back pain between his scapula. Patient reports that he is a current patient of Dr. Jerez'red with cardiology. Patient reports last told that he had a ejection fraction of less than 25%. Patient has previously been diagnosed with heart failure in his on medications for heart failure unsure what those medications are at this time. Patient reports his daughter has a list. Patient reports he called his hand edger's office they told him to report to the emergency department immediately. Patient reports he has had multiple syncopal episodes over the last 8 days. Patient reports intermittent shortness of breath associated with the chest pain at this time. Patient reports he has a history of chronic back pain. No fever chills nausea vomiting diarrhea reported at this time. Medication Reconciliation Allergies: Coded Allergies: No Known Allergies (Unverified , 04/09/25) Scheduled Furosemide (Lasix), 20 MG PO DAILY Levetiracetam (Levetiracetam), 500 MG PO BID Metoprolol Succinate (Metoprolol Succinate), 1 TAB PO DAILY, (Reported) Rosuvastatin Calcium (Rosuvastatin Calcium), 1 TAB PO HS, (Reported) Scheduled PRN Baclofen (Baclofen), 10 MG PO Q8H PRN for muscle spasms Cyclobenzaprine* (Cyclobenzaprine*), 1 TAB PO Q8H PRN for pain Past Medical History Past Medical History: No Pertinent History Past Surgical History: noncontributory Alcohol Use: None Lives In: Home Occupation: employed Physical Exam Physical Exam VITALS: Reviewed and as above. GENERAL: Alert, no apparent distress. HEENT: Normocephalic, atraumatic, PERRL, EOMI, dry mucosa, no erythema RESPIRATORY: Lungs clear, normal breath sounds, no respiratory distress. CHEST: No accessory muscle use, no retractions CV: Regular rate, rhythm, no edema, no murmur, No: JVD GI: Soft, non-tender, bowels sounds present, no rebound, guarding, or rigidity BACK: Paraspinal tenderness bilateral lower lumbar as well as lower thoracic region no deformities MUSCULOSKELETAL: No deformities, no edema SKIN: Warm and dry, no rash NEURO: Oriented x4, No motor or sensory deficit PSYCH: Normal mood and affect, no agitation Progress Progress Note Patient: MAGY WADDELL III Medical Record: [id number] [facility] : 1955, Age: 69 Sex: Male Location: ER Patient Status: REG ER Service Date/Time: 04/09/251627 Ordering Physician: CEHMO FRANK MD Exam: CHEST,SINGLE VIEW CHEST RADIOGRAPH Indication: CP Technique: DI CHEST,SINGLE VIEW Comparison: None FINDINGS: The cardiac silhouette is unremarkable. The lungs demonstrate bibasilar airspace opacities, [id number]. The pulmonary vasculature is unremarkable. Small left pleural effusion. There is no pneumothorax. IMPRESSION: As above Electronically Signed by:STEVO KENDALL MD Date & Time: 04/09/251707 Dictated by: STEVO KENDALL MD Dictation date and time: 04/09/251626 Primary Care Provider: NO PRIMARY CARE PROVIDER cc: CHEMO FRANK MD ~ Patient: MAGY WADDELL III Medical Record: [id number] [facility] : 1955, Age: 69 Sex: Male Location: ER Patient Status: REG ER Service Date/Time: 04/09/251719 Ordering Physician: CHEMO FRANK MD Exam: THORACIC SPINE [facility] INDICATION: fall COMPARISON: DI CHEST,SINGLE VIEW on DOS: 04/09/25 TECHNIQUE: 5 views of the thoracic spine were obtained. FINDINGS: The thoracic vertebral alignment is normal. Mild Multilevel degenerative changes with mild disc space height loss. Mild anterior wedging of the lower thoracic spine vertebrae likely chronic. IMPRESSION: Probable old mild anterior wedge deformity of the lower thoracic spine vertebrae. No convincing evidence for acute fracture. Electronically Signed by:DANN BACON MD Date & Time: 04/09/251724 Dictated by: DANN BACON MD Dictation date and time: 04/09/251709 Primary Care Provider: NO PRIMARY CARE PROVIDER cc: CHEMO FRANK MD ~ Patient: MAGY WADDELL III Medical Record: [id number] [facility] : 1955, Age: 69 Sex: Male Location: ER Patient Status: REG ER Service Date/Time: 04/09/251719 Ordering Physician: CHEMO FRANK MD Exam: LUMBAR SPINE LIMITED LUMBAR RADIOGRAPH Indication: fall Comparison: MR MRI LUMBAR SPINE on DOS: 10/24/24 Findings: 4 views obtained. No acute fracture. Degenerative changes, with disc space height loss and facet degeneration most pronounced at lower lumbar spine. IMPRESSION: No acute fracture or dislocation of the lumbar spine. Degenerative changes of the lumbar spine. Electronically Signed by:DANN BACON MD Date & Time: 04/09/251722 Dictated by: DANN BACON MD Dictation date and time: 04/09/251709 Primary Care Provider: NO PRIMARY CARE PROVIDER cc: CHEMO FRANK MD ~ Medical Decision Making Additional information obtaine: old records Findings Twelve lead EKG demonstrates a sinus rhythm rate of 85 with a normal axis and nonspecific ST abnormalities there was no ST-elevation or ST-depression time of the EKG was 1656. 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 I independently interpreted the patient's lumbar spine and thoracic spine imaging I did identify any acute appearing fractures he does have very small anterior wedge compression fracture of the lower thoracic T11 vertebrae. There was no dislocation and normal appearing alignment. There were no lucencies of the bony structures appreciated. The radiologist's interpretation was reviewed as well. Differential Dx:Considerations: AAA, Angina/MO, Aortic dissection, Esophagitis Departure Time of Disposition: 17:36 Disposition: 01 HOME / SELF CARE / HOMELESS Impression: Primary Impression: Mid-back pain, acute Additional Impression: Chest pain Qualified Codes: R07.9 - Chest pain, unspecified Discharge Instructions: Acute Back Pain, Adult, Nonspecific Chest Pain, Adult Referrals: NO PRIMARY CARE PROVIDER (PCP) Prescriptions Cyclobenzaprine* (Cyclobenzaprine*) 10 Mg Tablet 1 TAB PO Q8H PRN for pain for 10 Days, #30 TAB 0 Refills Prov: CHEMO FRANK MD 04/09/25 Additional Comment Seen with PA/PSYCHOLOGICAL AIDE The patient was seen with the mid-level provider the patient is a 69-year-old male with chest pain and back pain he states he has predominant pain is from his back from multiple falls that he has had the last one was proximally week ago he states that he has lumbar and thoracic lower thoracic back pain the patient's cardiac workup was unremarkable his EKG was nonischemic appearing his troponins are negative his chest chest x-ray was unremarkable back imaging failed to demonstrate any acute fractures the patient was given a dose of [place] the patient will be discharged with instructions to follow up as an outpatient. The patient's heart score was three Signature Scribe Signature: no scribe Attestation: The note accurately reflects work and decisions made by me.Chemo Frank MD 04/10/25 06:18 ZHENG BRIGGS Apr 09, 2025 16:26 CHEMO FRANK MD Apr 09, 2025 17:37
[2025-04-09 16:54] LABS: MEAN PLATELET VOLUME 7.8 FL (7.4-10.4); RED CELL DISTRIBUTION WIDTH 14.7 % (11.5-14.5)
--- NOTE | 2025-04-09 17:06 | RADIOLOGY REPORT ---
CHEST RADIOGRAPH Indication: CP Technique: DI CHEST,SINGLE VIEW Comparison: None FINDINGS: The cardiac silhouette is unremarkable. The lungs demonstrate bibasilar airspace opacities, [id number]-right. The pulmonary vasculature is unremarkable. Small left pleural effusion. There is no pneumothorax. IMPRESSION: As above
[2025-04-09 17:24] LABS: CREATININE 1.26 MG/DL (0.60-1.10); PRO BRAIN NATRIURETIC PEPTIDE 231 PG/ML (0-125); TOTAL CARBON DIOXIDE 23.6 MMOL/L (24-32); eCRCL 66 ML/MIN; eGFR 57 ML/MIN
--- NOTE | 2025-04-09 17:26 | RADIOLOGY REPORT ---
LUMBAR RADIOGRAPH Indication: fall Comparison: MR MRI LUMBAR SPINE on DOS: 10/24/24 Findings: 4 views obtained. No acute fracture. Degenerative changes, with disc space height loss and facet degeneration most pronounced at lower lumbar spine. IMPRESSION: No acute fracture or dislocation of the lumbar spine. Degenerative changes of the lumbar spine.
--- NOTE | 2025-04-09 17:27 | RADIOLOGY REPORT ---
[facility] INDICATION: fall COMPARISON: DI CHEST,SINGLE VIEW on DOS: 04/09/25 TECHNIQUE: 5 views of the thoracic spine were obtained. FINDINGS: The thoracic vertebral alignment is normal. Mild Multilevel degenerative changes with mild disc space height loss. Mild anterior wedging of the lower thoracic spine vertebrae likely chronic. IMPRESSION: Probable old mild anterior wedge deformity of the lower thoracic spine vertebrae. No convincing evidence for acute fracture.
[2025-04-09] MEDS ORDERED: CYCL-1 PO (17:35)
[2025-04-09] MEDS: HYDROcodone/acetaminophen 10/325mg tab PO ONE (17:38)
[2025-04-09 17:39] VITALS: BP 140/85; PULSE 88; RESP 18; TEMP 97.4; O2SAT 99
== END 2025-04-09 17:46 | disposition home or self-care (01) ==
LOC: ER 16:12
DX: R07.9 Chest pain, unspecified (principal); M54.9 Dorsalgia, unspecified; G89.29 Other chronic pain; I50.9 Heart failure, unspecified; Z79.899 Other long term (current) drug therapy
CPT/HCPCS: 36415; 71045; 72070; 72100; 80048; 83880; 84145; 84484; 85025; 93005; 99285